=== PATIENT | female | born 1955 | race Caucasian/White ===

== ENCOUNTER 2016-07-01 12:17 | Emergency (ER) | payer OTHER ==
[2016-07-01] MEDS ORDERED: Ketorolac INJ* 30 MG/ML 1 ML VIAL IV ONE (15:07)
[2016-07-01] MEDS ORDERED: Ondansetron INJ* 2 MG/ML VIAL IV ONE (15:10)
[2016-07-01] MEDS: NS 0.9% 1000 ML* 2,000 ML IV ONE ×2 (15:15→17:08)
[2016-07-01 15:27] LABS: Hematocrit 43 % (35-47); Hemoglobin 13.8 g/dl (12.0-16.0); Mean Corpuscular HGB Conc 32 g/dl (31-36); Mean Corpuscular Hemoglobin 26 pg (27-31); Mean Corpuscular Volume 80 fL (80-97); Mean Platelet Volume 7 um3 (7.4-10.4); Red Blood Count 5.39 10^6/ul (4.0-5.4); Red Cell Distribution Width 14 % (10.5-15); White Blood Count 8.1 10^3/ul (3.5-10.8)
[2016-07-01] MEDS ORDERED: Benzonatate CAP* 100 MG PO ONE (15:29)
[2016-07-01] MEDS ORDERED: guaiFENesin/CODIEN 100MG-10MG* 5 ML UDC PO ONE (15:30)
[2016-07-01 15:31] LABS: Urine Bilirubin Negative (Negative); Urine Glucose Negative (Negative); Urine Nitrite Negative (Negative)
[2016-07-01 15:42] LABS: Albumin 4.1 g/dL (3.2-5.2); BUN/Creatinine Ratio 16.5 (8-20); Calcium 9.7 mg/dL (8.6-10.3); EGFR African American 96.1 (>60); EGFR Non-African American 74.7 (>60); Globulin 3.3 g/dL (2-4); Potassium 3.8 mmol/L (3.5-5.0); Total Bilirubin 0.4 mg/dL (0.2-1.0); Total Protein 7.4 g/dL (6.4-8.9)
--- NOTE | 2016-07-01 15:56 | RAD ---
Indication: Right-sided headaches with vomiting. CT of the brain was performed without IV contrast. Ventricular structures are midline. No midline shift is noted. The extra-axial spaces are unremarkable. There is no evidence of intracranial mass or hemorrhage. No other high or low density lesions are identified. Mastoid air cells and paranasal sinuses are otherwise unremarkable. IMPRESSION: No intracranial mass or hemorrhage is noted.
--- NOTE | 2016-07-01 17:03 | RAD ---
Indication: Vomiting. Cough, pneumonia. 2 views of the chest demonstrate no mediastinal shift. Heart is of normal size and configuration. Lungs are clear. When compared to previous exam there is no significant change. IMPRESSION: No active cardiopulmonary disease is noted.
--- NOTE | 2016-07-01 17:04 | RAD ---
Indication: Vomiting and small bowel obstruction Flat and upright views of the abdomen demonstrates no free air. No dilated loops of bowel are noted. The colon is filled with stool. IMPRESSION: No free air or obstruction is noted.
[2016-07-01] MEDS ORDERED: Ipratropium 0.5MG/2.5ML NEB* 0.5 MG/2.5 ML NEB.SOLN INH ONE (17:48)
[2016-07-01] MEDS ORDERED: Albuterol HFA INHALER* 8 gm MDI INH ONE (18:50)
--- NOTE | 2016-07-01 19:22 | ED ---
Rachel Merlos Anna, scribed for Chris Dueñas MD on 07/01/16 at 1458 . Headache - HPI Summary HPI Summary: Patient is a 60 y/o female coming to [facility] presenting with a constant headache that began last night. She reports getting frequent headaches. The headache is located behind her forehead and her right eye, described as a pressure. She has some photophobia. The headache is exacerbated by coughing. She has additionally had abdominal pain, emesis, and nausea. The abdominal pain also began last night , and she attributes it to the emesis. The abdominal pain is exacerbated by BM. She reports neck pain when coughing. She has had a cough and was prescribed cough syrup with Codeine and Azithromycin six days ago. The cough is a dry, unproductive cough and has been present for three weeks. She has rhinorrhea and watery eyes. She takes Zofran regularly for nausea. She takes a stool softener at baseline. She has been unable to take some of her medications because of the emesis. She says a she has history of migraines, undiagnosed, and a history of seasonal allergies. She denies a history of asthma. She did not have a flu shot this year. 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 - accompanied by family Hx Last Menstrual Period: today Onset/Duration: Started days ago, Still Present Timing: Constant Character: Pressure - Allergies/Home Medications Allergies/Adverse Reactions: Allergies Allergy/AdvReac Type Severity Reaction Status Date / Time Venlafaxine [From Effexor] Allergy Unknown Verified 07/01/16 12:29 Reaction Details ETOH Allergy Unknown Unknown Uncoded 07/01/16 12:29 Reaction Details PMH/Surg Hx/FS Hx/Imm Hx Endocrine/Hematology History: Denies: Hx Diabetes, Hx Thyroid Disease Cardiovascular History: Reports: Hx Hypercholesterolemia Denies: Hx Congestive Heart Failure, Hx Hypertension Respiratory History: Reports: Hx Seasonal Allergies Denies: Hx Asthma, Hx Chronic Obstructive Pulmonary Disease (COPD) GI History: Denies: Hx Ulcer History: Denies: Hx Renal Disease Neurological History: Reports: Hx Migraine, Other Neuro Impairments/Disorders - 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 Auditory hallucinations. Denies: Hx Eating Disorder Infectious Disease History: No Infectious Disease History: Denies: Hx Hepatitis, Hx Human Immunodeficiency Virus (HIV), History Other Infectious Disease, Traveled Outside the [place] in Last 30 Days - Family History Known Family History: Positive: Cardiac Disease - sister of [place] @ 47. - Social History Occupation: Disabled Alcohol Use: None Hx Substance Use: No Substance Use Type: Reports: None Hx Tobacco Use: Yes Smoking Status (MU): Former Smoker Have You Smoked in the Last Year: No Review of Systems Positive: Photophobia, Drainage - watery Positive: Nasal Discharge Positive: Cough Positive: Abdominal Pain, Vomiting, Nausea Positive: Arthralgia Positive: Headache All Other Systems Reviewed And Are Negative: Yes Physical Exam - Summary Physical Exam Summary: The patient is well-nourished in mild distress. The skin is warm and dry and skin color reflects adequate perfusion. Decreased skin turgor. HEENT: The head is normocephalic and atraumatic. The pupils are equal and reactive. The conjunctivae are clear and without drainage. Nares are patent and without drainage. Mouth reveals moist mucous membranes and the throat is without erythema and exudate. The external ears are intact. The ear canals are patent and without drainage. The tympanic membranes are intact. A little bit of photophobia Neck is supple with full range of motion and non-tender. No TMJ tenderness. To temporal artery tenderness. No nuchal rigidity. Respiratory: Chest is non-tender. Some rales in right base of chest. Cardiovascular: Heart is regular rate and rhythm. There is no murmur or rub auscultated. There is no peripheral edema and pulses are symmetrical and equal. Decreased skin turgor. Abdomen: The abdomen is soft and non-tender. There are normal bowel sounds heard in all four quadrants and there is no organomegaly palpated. Musculoskeletal: There is no back pain noted. Extremities are non-tender with full range of motion. There is good capillary refill, 2 seconds. There is no peripheral edema or calf tenderness elicited. Neurological: Patient is alert and oriented to person, place and time. The patient has symmetrical motor strength in all four extremities. Cranial nerves are grossly intact. Deep tendon reflexes are symmetrical and equal in all four extremities. Psychiatric: The patient has an appropriate affect and does not exhibit any anxiety or depression. Triage Information Reviewed: Yes Vital Signs On Initial Exam: Initial Vitals Temp Pulse Resp BP Pulse Ox 99.0 F 80 18 122/75 97 07/01/16 12:29 07/01/16 12:29 07/01/16 12:29 07/01/16 12:29 07/01/16 12:29 Vital Signs Reviewed: Yes Diagnostics - Vital Signs Vital Signs Temp Pulse Resp BP Pulse Ox 07/01/16 13:38 99.6 F 88 20 124/74 96 07/01/16 12:29 99.0 F 80 18 122/75 97 - Laboratory Lab Results: Lab Results 07/01/16 07/01/16 07/01/16 Range/Units 15:15 15:15 15:15 WBC 8.1 (3.5-10.8) 10^3/ul RBC 5.39 (4.0-5.4) 10^6/ul Hgb 13.8 (12.0-16.0) g/dl Hct 43 (35-47) % MCV 80 (80-97) fL MCH 26 L (27-31) pg MCHC 32 (31-36) g/dl RDW 14 (10.5-15) % Plt Count 346 (150-450) 10^3/ul MPV 7 L (7.4-10.4) um3 Neut % (Auto) 62.5 (38-83) % Lymph % (Auto) 31.1 (25-47) % [place] % (Auto) 5.5 (1-9) % Eos % (Auto) 0.5 (0-6) % Baso % (Auto) 0.4 (0-2) % Absolute Neuts (auto) 5.0 (1.5-7.7) 10^3/ul Absolute Lymphs (auto) 2.5 (1.0-4.8) 10^3/ul Absolute Monos (auto) 0.4 (0-0.8) 10^3/ul Absolute Eos (auto) 0 (0-0.6) 10^3/ul Absolute Basos (auto) 0 (0-0.2) 10^3/ul Absolute Nucleated RBC 0.01 10^3/ul Nucleated RBC % 0.1 Sodium 139 (133-145) mmol/L Potassium 3.8 (3.5-5.0) mmol/L Chloride 103 (101-111) mmol/L Carbon Dioxide 29 (22-32) mmol/L Anion Gap 7 (2-11) mmol/L BUN 13 (6-24) mg/dL Creatinine 0.79 (0.51-0.95) mg/dL Est GFR ( Amer) 96.1 (>60) Est GFR (Non-Af Amer) 74.7 (>60) BUN/Creatinine Ratio 16.5 (8-20) Glucose 96 (70-100) mg/dL Lactic Acid (0.5-2.0) mmol/L Calcium 9.7 (8.6-10.3) mg/dL Total Bilirubin 0.40 (0.2-1.0) mg/dL AST 11 L (13-39) U/L ALT 16 (7-52) U/L Alkaline Phosphatase 33 L (34-104) U/L Total Protein 7.4 (6.4-8.9) g/dL Albumin 4.1 (3.2-5.2) g/dL Globulin 3.3 (2-4) g/dL Albumin/Globulin Ratio 1.2 (1-3) Lipase 20 (11.0-82.0) U/L Urine Color Yellow Urine Appearance Turbid Urine pH 5.0 (5-9) Ur Specific Sharps 1.021 (1.010-1.030) Urine Protein Negative (Negative) Urine Ketones Trace H (Negative) Urine Blood Negative (Negative) Urine Nitrate Negative (Negative) Urine Bilirubin Negative (Negative) Urine Urobilinogen Negative (Negative) Ur Leukocyte Esterase Negative (Negative) Urine Glucose Negative (Negative) Urine Ascorbic Acid * H (Negative) 07/01/16 Range/Units 15:15 WBC (3.5-10.8) 10^3/ul RBC (4.0-5.4) 10^6/ul Hgb (12.0-16.0) g/dl Hct (35-47) % MCV (80-97) fL MCH (27-31) pg MCHC (31-36) g/dl RDW (10.5-15) % Plt Count (150-450) 10^3/ul MPV (7.4-10.4) um3 Neut % (Auto) (38-83) % Lymph % (Auto) (25-47) % [place] % (Auto) (1-9) % Eos % (Auto) (0-6) % Baso % (Auto) (0-2) % Absolute Neuts (auto) (1.5-7.7) 10^3/ul Absolute Lymphs (auto) (1.0-4.8) 10^3/ul Absolute Monos (auto) (0-0.8) 10^3/ul Absolute Eos (auto) (0-0.6) 10^3/ul Absolute Basos (auto) (0-0.2) 10^3/ul Absolute Nucleated RBC 10^3/ul Nucleated RBC % Sodium (133-145) mmol/L Potassium (3.5-5.0) mmol/L Chloride (101-111) mmol/L Carbon Dioxide (22-32) mmol/L Anion Gap (2-11) mmol/L BUN (6-24) mg/dL Creatinine (0.51-0.95) mg/dL Est GFR ( Amer) (>60) Est GFR (Non-Af Amer) (>60) BUN/Creatinine Ratio (8-20) Glucose (70-100) mg/dL Lactic Acid 0.8 (0.5-2.0) mmol/L Calcium (8.6-10.3) mg/dL Total Bilirubin (0.2-1.0) mg/dL AST (13-39) U/L ALT (7-52) U/L Alkaline Phosphatase (34-104) U/L Total Protein (6.4-8.9) g/dL Albumin (3.2-5.2) g/dL Globulin (2-4) g/dL Albumin/Globulin Ratio (1-3) Lipase (11.0-82.0) U/L Urine Color Urine Appearance Urine pH (5-9) Ur Specific [place] (1.010-1.030) Urine Protein (Negative) Urine Ketones (Negative) Urine Blood (Negative) Urine Nitrate (Negative) Urine Bilirubin (Negative) Urine Urobilinogen (Negative) Ur Leukocyte Esterase (Negative) Urine Glucose (Negative) Urine Ascorbic Acid (Negative) Result Diagrams: 07/01/16 15:15 07/01/16 15:15 Lab Statement: Any lab studies that have been ordered have been reviewed, and results considered in the medical decision making process. - Radiology Abd XR Xray Interpretation: No Acute Changes Radiology Interpretation Completed By: Radiologist - Flat and upright views of the abdomen demonstrates no free air. No dilated loops of bowel are noted. The colon is filled with stool. IMPRESSION: No free air or obstruction is noted. CXR Xray Interpretation: No Acute Changes Radiology Interpretation Completed By: Radiologist - CT CT Brain CT Interpretation: No Acute Changes CT Interpretation Completed By: Radiologist - IMPRESSION: No intracranial mass or hemorrhage is noted. Re-Evaluation - Re-Evaluation First Eval Re-Evaluation Time: 16:20 Change: Improved Comment: She reports that her SOTELO better. Nausea is all right. She refuses more analgesics at this time. Second Eval Re-Evaluation Time: 16:53 Change: Improved Comment: The patient reports that her SOTELO has mostly resolved. She is still coughing. Her family member says the patient does not wheeze at home. The patient has received her medication for her cough at this time. Third Eval Re-Evaluation Time: 17:30 Change: Improved Comment: The patient's SOTELO has resolved, but she reports that she is still coughing. She says she has some cough syrup at home. There is no wheezing on auscultation. Reviewed labs, XR, CT with patient. Fourth Eval Re-Evaluation Time: 18:43 Change: Improved Comment: The Atrovent breathing treatment alleviated the coughing somewhat. The coughing is now just intermittent. Headache Course/Dx - Course Assessment/Plan: Patient is a 60 y/o female with a history of cough for three weeks being treated with azithromycin and guaifensin with Codeine. 24 hours ago she developed a severe right-sided headache with photophobia and abdominal pain. She also felt nausea. Patient was given IV hydration and analgesisa in the form of Toradol. She had Zofran and Toradol for total resolution. CXR and abd Xr showed no obstruction. Labs WNL. She had an Atrovent treatment, which the patient states helped. She was also given Teslon pearls, which helped. She will be discharged home with albuterol inhaler, Teslon pearls, and follow up from her doctor. - Diagnoses Differential Diagnosis/HQI/PQRI: Subarachnoid Hemorrhage, Other - pneumonia, bronchitis, migraine, small bowel obstruction, sinusitis, reactive airways disease Provider Diagnoses: Headache, Abdominal pain, Chronic cough, Bronchitis, Dehydration Discharge - Discharge Plan Condition: Stable Disposition: HOME Prescriptions: Benzonatate CAP* [Tessalon 100 MG CAP*] 100 mg PO TID #30 cap Patient Education Materials: Albuterol (By breathing), Chronic Cough (ED), General Headache (ED) Referrals: Fortino Pelayo MD [Primary Care Provider] - Additional Instructions: For the albuterol inhaler, use two puffs every six hours. Continue with cough medicine as directed. Take Tessalon as directed. Follow up with primary care provider within 48 hours. Return to the emergency department for any new or worsening symptoms. The documentation as recorded by the Rachel martínez Anna accurately reflects the service I personally performed and the decisions made by Spenser jules Drew, MD.
[2016-07-01 19:23] VITALS: BP 115/71
== END 2016-07-01 19:21 | disposition home or self-care (01) ==
LOC: ED 12:17
DX: R51 Headache (principal); J40 Bronchitis, not specified as acute or chronic; E86.0 Dehydration; R10.9 Unspecified abdominal pain; H53.149 Visual discomfort, unspecified; R05 Cough; R11.2 Nausea with vomiting, unspecified; Z87.891 Personal history of nicotine dependence
CPT/HCPCS: 36415; 70450; 71020; 74020; 80053; 81003; 83605; 83690; 85025; 94640; 96374; 96375; 99283; A9270-GY; J1885; J2405; J7644

== ENCOUNTER 2017-01-31 10:11 | Emergency (ER) | payer OTHER ==
[2017-01-31] MEDS ORDERED: Ketorolac INJ* 30 MG/ML 1 ML VIAL IM ONE (11:08)
[2017-01-31 11:14] VITALS: BP 125/66
--- NOTE | 2017-01-31 11:49 | RAD ---
Indication: Left shoulder pain. 3 views of left shoulder demonstrates AC joint arthritis. No fracture is noted. IMPRESSION: No fracture of the left elbow is noted.
--- NOTE | 2017-02-01 08:25 | ED ---
Gen Merlos Alfonso, scribed for Ildefonso Chanel MD on 01/31/17 at 1119 . Upper Extremity Pain - HPI Summary HPI Summary: This patient is a 61 year old F BIBA to [facility] with a chief complaint of left shoulder pain since 1000 yesterday. The pain radiates to her left upper back and LUE. She denies recent trauma. She reports recent heavy lifting. The patient rates the pain 5/10 in severity. Symptoms alleviated by nothing. Patient denies right shoulder pain and abdominal pain. - History of Current Complaint Chief Complaint: EDExtremityUpper Stated Complaint: LT SHOULDER PAIN Time Seen by Provider: 01/31/17 10:48 Hx Obtained From: Patient Hx Last Menstrual Period: today Mechanism Of Injury: Other - recent heavy lifting Onset/Duration: Started Days Ago - 1000 yesterday, Still Present Timing: Constant Pain Location: Shoulder - L Alleviating Factor(s): Nothing Associated Signs & Symptoms: Positive: Other - Patient denies right shoulder pain and abdominal pain. - Allergies/Home Medications Allergies/Adverse Reactions: Allergies Allergy/AdvReac Type Severity Reaction Status Date / Time Venlafaxine [From Effexor] Allergy Unknown Verified 07/01/16 12:29 Reaction Details ETOH Allergy Unknown Unknown Uncoded 07/01/16 12:29 Reaction Details PMH/Surg Hx/FS Hx/Imm Hx Endocrine/Hematology History: Denies: Hx Diabetes, Hx Thyroid Disease Cardiovascular History: Reports: Hx Hypercholesterolemia Denies: Hx Congestive Heart Failure, Hx Hypertension Respiratory History: Reports: Hx Seasonal Allergies Denies: Hx Asthma, Hx Chronic Obstructive Pulmonary Disease (COPD) GI History: Denies: Hx Ulcer History: Denies: Hx Renal Disease Neurological History: Reports: Hx Migraine, Other Neuro Impairments/Disorders - 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 Auditory hallucinations. Denies: Hx Eating Disorder Infectious Disease History: No Infectious Disease History: Denies: Hx Hepatitis, Hx Human Immunodeficiency Virus (HIV), History Other Infectious Disease, Traveled Outside the [place] in Last 30 Days - Family History Known Family History: Positive: Cardiac Disease - sister of [place] @ 47. - Social History Alcohol Use: None Hx Substance Use: No Substance Use Type: Reports: None Hx Tobacco Use: Yes Smoking Status (MU): Former Smoker Have You Smoked in the Last Year: No Review of Systems Negative: Fever Negative: Abdominal Pain Positive: Other - Left shoulder pain; negative right shoulder pain All Other Systems Reviewed And Are Negative: Yes Physical Exam - Summary Physical Exam Summary: VITAL SIGNS: Reviewed. GENERAL: Patient is a well-developed and nourished female who is lying comfortable in the stretcher. Patient is not in any acute respiratory distress. HEAD AND FACE: No signs of trauma. No ecchymosis, hematomas or skull depressions. No sinus tenderness. EYES: PERRLA, EOMI x 2, No injected conjunctiva, no nystagmus. EARS: Hearing grossly intact. Ear canals and tympanic membranes are within normal limits. MOUTH: Oropharynx within normal limits. NECK: Supple, trachea is midline, no adenopathy, no JVD, no carotid bruit, no c- spine tenderness, neck with full ROM. CHEST: Symmetric, no tenderness at palpation LUNGS: Clear to auscultation bilaterally. No wheezing or crackles. CVS: Regular rate and rhythm, S1 and S2 present, no murmurs or gallops appreciated. ABDOMEN: Soft, non-tender. No signs of distention. No rebound no guarding, and no masses palpated. Bowel sounds are normal. EXTREMITIES: FROM in all major joints, no edema, no cyanosis or clubbing. No deformity, erythema, hematoma, and swelling. Left trapezius and left sternocleidomastoid tenderness. NEURO: Alert and oriented x 3. No acute neurological deficits. Speech is normal and follows commands. SKIN: Dry and warm Triage Information Reviewed: Yes Vital Signs On Initial Exam: Initial Vitals Temp Pulse Resp BP Pulse Ox 98.4 F 76 19 125/66 96 01/31/17 11:09 01/31/17 11:09 01/31/17 11:09 01/31/17 11:09 01/31/17 11:09 Vital Signs Reviewed: Yes - Greene Coma Scale Coma Scale Total: 15 Diagnostics - Vital Signs Vital Signs Temp Pulse Resp BP Pulse Ox 01/31/17 11:16 74 96 01/31/17 11:09 98.4 F 76 19 125/66 96 - Laboratory Lab Statement: Any lab studies that have been ordered have been reviewed, and results considered in the medical decision making process. - Radiology Left shoulder X-Ray Radiology Interpretation Completed By: Radiologist - No fracture of the left elbow is noted. ED physician has reviewed this radiology report and agrees. Course/Dx - Course Assessment/Plan: This patient is a 61 year old F BIBA to [facility] with a chief complaint of left shoulder pain since 1000 yesterday. The pain radiates to her left upper back and LUE. She denies recent trauma. She reports recent heavy lifting. The patient rates the pain 5/10 in severity. Symptoms alleviated by nothing. Patient denies right shoulder pain and abdominal pain. Left shoulder X- Ray reveals No fracture of the left elbow is noted. ED physician has reviewed this radiology report and agrees. The patients pain is along the Left trapezius and left sternocleidomastoid. Therefore the patient was given a toradol injection and her symptoms improved. I believe the symptoms are secondary to a muscle spasm due to over use. Since the patient is feeling better she will be discharged to home with PCP follow up. The patient is agreeable with this plan. The patient is hemodynamically stable and alert and oriented x3. - Diagnoses Differential Diagnosis/HQI/PQRI: Positive: Bursitis, Contusion, Fracture (Closed ), Strain, Sprain Provider Diagnoses: Left shoulder pain Discharge - Discharge Plan Condition: Stable Disposition: HOME Prescriptions: Naproxen TAB* [Naprosyn 250 mg TAB*] 500 mg PO Q8H PRN #30 tab PRN Reason: Pain Patient Education Materials: Shoulder Pain (ED) Referrals: Fortino Pelayo MD [Primary Care Provider] - 3 Days Additional Instructions: RETURN TO THE EMERGENCY DEPARTMENT FOR CHANGING OR WORSENING SYMPTOMS. The documentation as recorded by the Gen martínez Alfonso accurately reflects the service I personally performed and the decisions made by , Ildefonso Chanel MD.
== END 2017-01-31 13:01 | disposition home or self-care (01) ==
LOC: ED 10:11
DX: M25.512 Pain in left shoulder (principal)
CPT/HCPCS: 96372; 99282; J1885

== ENCOUNTER 2017-07-20 14:26 | Emergency (ER) | payer OTHER ==
[2017-07-20] MEDS ORDERED: Meclizine TAB* 12.5 MG PO ONE (15:01)
[2017-07-20 15:42] LABS: Urine Appearance Clear; Urine Blood Negative (Negative); Urine Color Yellow; Urine Ketones Negative (Negative); Urine Protein Negative (Negative); Urine Red Blood Cell Trace(0-2/hpf) (Absent); Urine Specific Gravity 1.025 (1.010-1.030); Urine Urobilinogen Negative (Negative); Urine White Blood Cell Trace(0-5/hpf) (Absent)
[2017-07-20 16:09] LABS: ABS Basophils 0.1 10^3/ul (0-0.2); ABS Eosinophils 0.1 10^3/ul (0-0.6); ABS Lymphocytes 2.5 10^3/ul (1.0-4.8); ABS Monocytes 0.6 10^3/ul (0-0.8); ABS Neutrophils 4.3 10^3/ul (1.5-7.7); ABS Nucleated RBC 0 10^3/ul; Eosinophil % 1.2 % (0-6); Hematocrit 44 % (35-47); Hemoglobin 14.6 g/dl (12.0-16.0); Lymphocyte % 33.1 % (25-47); Mean Corpuscular HGB Conc 33 g/dl (31-36); Mean Corpuscular Hemoglobin 27 pg (27-31); Mean Corpuscular Volume 82 fL (80-97); Mean Platelet Volume 6.8 um3 (7.4-10.4); Nucleated Red Blood Cells % 0; Platelet Count 318 10^3/ul (150-450); Red Cell Distribution Width 15 % (10.5-15); White Blood Count 7.6 10^3/ul (3.5-10.8)
[2017-07-20 16:28] LABS: EGFR Non-African American 67.5 (>60)
--- NOTE | 2017-07-20 18:54 | ED ---
Shukri Merlos Natalie, scribed for Blas Logan MD on 07/20/17 at 1538 . Psychiatric Complaint - HPI Summary HPI Summary: The pt is a 61 y/o F presenting to the ED c/o anxiety, pacing, sleep loss, and dizziness started approximately four weeks ago. Per mother, the pt cannot retain information and she is unable to relax. She visited a mental health counselor three weeks ago when the anxiety started, but she was able to be evaluated because her case was closed the time due to the positive reaction that her Abilify prescription has providing for her. A few days ago she went to a counselor who modified her Abilify dosage to 10mg because it was not working, and she was also put on a low dosage sleeping medication. She has had two episodes of dizziness in the past few days, and she states that pacing, which started on 07/18/17, helps her retain her balance. She has also been hearing voices. - History Of Current Complaint Chief Complaint: EDMentalHealth Time Seen by Provider: 07/20/17 14:35 Hx Obtained From: Patient, Family/Enrobing Machine Operator - mother Hx Last Menstrual Period: today Onset/Duration: Gradual Onset, Lasting Weeks, Still Present Timing: Constant Severity Initially: Moderate Severity Currently: Moderate Character: Anxious Aggravating Factor(s): Nothing Alleviating Factor(s): Nothing Associated Signs And Symptoms: Positive: Hallucinating - voices, Sleep Disturbance - Allergies/Home Medications Allergies/Adverse Reactions: Allergies Allergy/AdvReac Type Severity Reaction Status Date / Time venlafaxine [From Effexor] Allergy Dizziness Verified 07/20/17 14:42 ETOH Allergy Unknown GI Upset Uncoded 07/20/17 14:42 Home Medications: Home Medications Acetaminophen TAB* [Tylenol TAB*] 325 mg PO Q4H PRN 07/20/17 [History Confirmed 07/20/17] Ondansetron TAB* [Zofran 4 MG Tab*] 4 mg PO Q6H PRN 07/20/17 [History Confirmed 07/20/17] traZODone TAB* [Desyrel TAB*] 50 mg PO BEDTIME 07/20/17 [History Confirmed 07/20] PMH/Surg Hx/FS Hx/Imm Hx Previously Healthy: No Endocrine/Hematology History: Denies: Hx Diabetes, Hx Thyroid Disease Cardiovascular History: Reports: Hx Hypercholesterolemia Denies: Hx Congestive Heart Failure, Hx Hypertension Respiratory History: Reports: Hx Seasonal Allergies Denies: Hx Asthma, Hx Chronic Obstructive Pulmonary Disease (COPD) GI History: Denies: Hx Ulcer History: Denies: Hx Renal Disease Neurological History: Reports: Hx Migraine, Other Neuro Impairments/Disorders - 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 Auditory hallucinations. Denies: Hx Eating Disorder Infectious Disease History: No Infectious Disease History: Denies: Hx Hepatitis, Hx Human Immunodeficiency Virus (HIV), History Other Infectious Disease, Traveled Outside the [place] in Last 30 Days - Family History Known Family History: Positive: Cardiac Disease - sister of [place] @ 47. - Social History Alcohol Use: None Hx Substance Use: No Substance Use Type: Reports: None, Prescribed Hx Tobacco Use: Yes Smoking Status (MU): Former Smoker Have You Smoked in the Last Year: No Review of Systems Neurological: Other - dizziness, pacing, unable to relax, hearing voices Positive: Anxious All Other Systems Reviewed And Are Negative: Yes Physical Exam Triage Information Reviewed: Yes Vital Signs On Initial Exam: Initial Vitals Temp Pulse Resp BP Pulse Ox 99.1 F 93 18 109/65 100 07/20/17 14:36 07/20/17 14:36 07/20/17 14:36 07/20/17 14:36 07/20/17 14:36 Vital Signs Reviewed: Yes Appearance: Positive: Well-Appearing, No Pain Distress Skin: Positive: Warm, Skin Color Reflects Adequate Perfusion, Dry Head/Face: Positive: Normal Head/Face Inspection Eyes: Positive: EOMI, TG ENT: Positive: Normal ENT inspection Neck: Positive: Supple, Nontender Respiratory/Lung Sounds: Positive: Clear to Auscultation, Breath Sounds Present Cardiovascular: Positive: RRR Abdomen Description: Positive: Nontender, Soft Bowel Sounds: Positive: Present Musculoskeletal: Positive: Normal, Strength/ROM Intact Neurological: Positive: Normal, Sensory/Motor Intact, Alert, Oriented to Person Place, Time, Other - standing without moving causes the pt to start to lose her balance Diagnostics - Vital Signs Vital Signs Temp Pulse Resp BP Pulse Ox 07/20/17 14:36 99.1 F 93 18 109/65 100 - Laboratory Lab Results: Lab Results 07/20/17 07/20/17 07/20/17 Range/Units 15:15 15:15 15:57 WBC (3.5-10.8) 10^3/ul RBC (4.0-5.4) 10^6/ul Hgb (12.0-16.0) g/dl Hct (35-47) % MCV (80-97) fL MCH (27-31) pg MCHC (31-36) g/dl RDW (10.5-15) % Plt Count (150-450) 10^3/ul MPV (7.4-10.4) um3 Neut % (Auto) (38-83) % Lymph % (Auto) (25-47) % [place] % (Auto) (0-7) % Eos % (Auto) (0-6) % Baso % (Auto) (0-2) % Absolute Neuts (auto) (1.5-7.7) 10^3/ul Absolute Lymphs (auto) (1.0-4.8) 10^3/ul Absolute Monos (auto) (0-0.8) 10^3/ul Absolute Eos (auto) (0-0.6) 10^3/ul Absolute Basos (auto) (0-0.2) 10^3/ul Absolute Nucleated RBC 10^3/ul Nucleated RBC % Sodium 139 (139-145) mmol/L Potassium 3.8 (3.5-5.0) mmol/L Chloride 105 (101-111) mmol/L Carbon Dioxide 24 (22-32) mmol/L Anion Gap 10 (2-11) mmol/L BUN 26 H (6-24) mg/dL Creatinine 0.86 (0.51-0.95) mg/dL Est GFR ( Amer) 86.9 (>60) Est GFR (Non-Af Amer) 67.5 (>60) BUN/Creatinine Ratio 30.2 H (8-20) Glucose 97 (70-100) mg/dL Calcium 9.5 (8.6-10.3) mg/dL Total Bilirubin 0.30 (0.2-1.0) mg/dL AST 14 (13-39) U/L ALT 16 (7-52) U/L Alkaline Phosphatase 31 L (34-104) U/L Total Protein 7.1 (6.4-8.9) g/dL Albumin 4.1 (3.2-5.2) g/dL Globulin 3.0 (2-4) g/dL Albumin/Globulin Ratio 1.4 (1-3) TSH 1.54 (0.34-5.60) mcIU/mL Urine Color Yellow Urine Appearance Clear Urine pH 5.0 (5-9) Ur Specific [place] 1.025 (1.010-1.030) Urine Protein Negative (Negative) Urine Ketones Negative (Negative) Urine Blood Negative (Negative) Urine Nitrate Negative (Negative) Urine Bilirubin Negative (Negative) Urine Urobilinogen Negative (Negative) Ur Leukocyte Esterase Trace A (Negative) Urine WBC (Auto) Trace(0-5/hpf) (Absent) Urine RBC (Auto) Trace(0-2/hpf) (Absent) Ur Squamous Epith Cells Present A (Absent) Urine Bacteria Absent (Absent) Urine Glucose Negative (Negative) Salicylates < 2.50 (<30) mg/dL Urine Opiates Screen None detected (None Detect) Acetaminophen < 15 mcg/mL Ur Barbiturates Screen None detected (None Detect) Ur Phencyclidine Scrn None detected (None Detect) Ur Amphetamines Screen None detected (None Detect) U Benzodiazepines Scrn None detected (None Detect) Urine Cocaine Screen None detected (None Detect) U Cannabinoids Screen None detected (None Detect) Serum Alcohol < 10 (<10) mg/dL 07/20/17 Range/Units 15:57 WBC 7.6 (3.5-10.8) 10^3/ul RBC 5.40 (4.0-5.4) 10^6/ul Hgb 14.6 (12.0-16.0) g/dl Hct 44 (35-47) % MCV 82 (80-97) fL MCH 27 (27-31) pg MCHC 33 (31-36) g/dl RDW 15 (10.5-15) % Plt Count 318 (150-450) 10^3/ul MPV 6.8 L (7.4-10.4) um3 Neut % (Auto) 56.8 (38-83) % Lymph % (Auto) 33.1 (25-47) % [place] % (Auto) 8.1 H (0-7) % Eos % (Auto) 1.2 (0-6) % Baso % (Auto) 0.8 (0-2) % Absolute Neuts (auto) 4.3 (1.5-7.7) 10^3/ul Absolute Lymphs (auto) 2.5 (1.0-4.8) 10^3/ul Absolute Monos (auto) 0.6 (0-0.8) 10^3/ul Absolute Eos (auto) 0.1 (0-0.6) 10^3/ul Absolute Basos (auto) 0.1 (0-0.2) 10^3/ul Absolute Nucleated RBC 0 10^3/ul Nucleated RBC % 0 Sodium (139-145) mmol/L Potassium (3.5-5.0) mmol/L Chloride (101-111) mmol/L Carbon Dioxide (22-32) mmol/L Anion Gap (2-11) mmol/L BUN (6-24) mg/dL Creatinine (0.51-0.95) mg/dL Est GFR ( Amer) (>60) Est GFR (Non-Af Amer) (>60) BUN/Creatinine Ratio (8-20) Glucose (70-100) mg/dL Calcium (8.6-10.3) mg/dL Total Bilirubin (0.2-1.0) mg/dL AST (13-39) U/L ALT (7-52) U/L Alkaline Phosphatase (34-104) U/L Total Protein (6.4-8.9) g/dL Albumin (3.2-5.2) g/dL Globulin (2-4) g/dL Albumin/Globulin Ratio (1-3) TSH (0.34-5.60) mcIU/mL Urine Color Urine Appearance Urine pH (5-9) Ur Specific [place] (1.010-1.030) Urine Protein (Negative) Urine Ketones (Negative) Urine Blood (Negative) Urine Nitrate (Negative) Urine Bilirubin (Negative) Urine Urobilinogen (Negative) Ur Leukocyte Esterase (Negative) Urine WBC (Auto) (Absent) Urine RBC (Auto) (Absent) Ur Squamous Epith Cells (Absent) Urine Bacteria (Absent) Urine Glucose (Negative) Salicylates (<30) mg/dL Urine Opiates Screen (None Detect) Acetaminophen mcg/mL Ur Barbiturates Screen (None Detect) Ur Phencyclidine Scrn (None Detect) Ur Amphetamines Screen (None Detect) U Benzodiazepines Scrn (None Detect) Urine Cocaine Screen (None Detect) U Cannabinoids Screen (None Detect) Serum Alcohol (<10) mg/dL Result Diagrams: 07/20/17 15:57 07/20/17 15:57 Lab Statement: Any lab studies that have been ordered have been reviewed, and results considered in the medical decision making process. Course/Dx - Course Course Of Treatment: Medications reviewed. Allergies noted. MHE PENDING AT SHIFT CHANGE. - Differential Dx/Clinical Impression Provider Diagnosis: Mental health problem, Dizziness Discharge - Sign-Out/Discharge Documenting (check all that apply): Discharge, Sign-Out Patient Signing out patient TO: Juan Sousa - Discharge Plan Condition: Stable Disposition: [facility] [place] Referrals: Fortino Pelayo MD [Primary Care Provider] - - Billing Disposition and Condition Condition: STABLE Disposition: [facility] [place] The documentation as recorded by the Shukri martínez Natalie accurately reflects the service I personally performed and the decisions made by me, Blas Logan MD.
[2017-07-20] MEDS ORDERED: QUEtiapine TAB* 25 MG PO ONE (20:00)
[2017-07-20 20:08] VITALS: BP 92/50
--- NOTE | 2017-08-11 19:18 | ED ---
Progress - Progress Note Progress Note: assumed care from Dr Hogan. Pt received crisis evaluation and was cleared for discharge. - Consult/PCP Time Called: 17:10 Course/Dx - Course Course Of Treatment: Medications reviewed. Allergies noted. MHE PENDING AT SHIFT CHANGE. - Diagnoses Provider Diagnoses: Mental health problem, Dizziness Discharge - Sign-Out/Discharge Documenting (check all that apply): Discharge - Discharge Plan Condition: Stable Disposition: HOME Prescriptions: QUEtiapine TAB* [SEROquel TAB*] 50 mg PO DAILY #14 tab Patient Education Materials: Hallucinations (ED), Anxiolysis in Adults (ED) Referrals: Fortino Pelayo MD [Primary Care Provider] - - Billing Disposition and Condition Condition: STABLE Disposition: HOME
== END 2017-07-20 20:15 | disposition home or self-care (01) ==
LOC: ED 14:26
DX: R44.0 Auditory hallucinations (principal); R42 Dizziness and giddiness; Z72.820 Sleep deprivation; Z87.891 Personal history of nicotine dependence
CPT/HCPCS: 36415; 80053; 80307; 80320; 80329; 81003; 81015; 84443; 85025; 87086; 99283; A9270-GY; G0480

== ENCOUNTER 2017-08-17 13:53 | Emergency (ER) | payer OTHER ==
[2017-08-17 14:10] VITALS: BP 118/99
== END 2017-08-17 15:58 | disposition left against medical advice (07) ==
LOC: ED 13:53
DX: M54.9 Dorsalgia, unspecified (principal); Z53.21 Procedure and treatment not carried out due to patient leaving prior to being seen by health care provider

== ENCOUNTER 2017-08-26 12:32 | Emergency (ER) | payer OTHER ==
[2017-08-26] MEDS ORDERED: Meclizine TAB* 12.5 MG PO ONE (15:00)
[2017-08-26] MEDS ORDERED: NS 0.9% 1000 ML* 1,000 ML IV ONE (15:00)
--- NOTE | 2017-08-26 15:33 | RAD ---
Indication: Dizziness, back pain, unstable on feet. Shortness of breath. Progression over a few weeks. Comparison: July 01, 2016 CT. Technique: Noncontrast CT vertex of skull through foramen magnum. Report: The sulci, ventricles, and basal cisterns are normal for age. Payton matter white matter differentiation is preserved without evidence for edema. No intra or extra axial hemorrhage, mass, or fluid collection detected. Unremarkable visualized orbital contents. Unremarkable calvarium and skull base. Unremarkable scalp. The visualized paranasal sinuses and mastoid air spaces are clear. IMPRESSION: Negative unenhanced head CT.
[2017-08-26 15:34] LABS: ABS Basophils 0 10^3/ul (0-0.2); ABS Eosinophils 0 10^3/ul (0-0.6); ABS Lymphocytes 2.2 10^3/ul (1.0-4.8); ABS Monocytes 0.5 10^3/ul (0-0.8); ABS Neutrophils 4.7 10^3/ul (1.5-7.7); ABS Nucleated RBC 0 10^3/ul; Eosinophil % 0.6 % (0-6); Hematocrit 45 % (35-47); Hemoglobin 14.9 g/dl (12.0-16.0); Lymphocyte % 29.4 % (25-47); Mean Corpuscular HGB Conc 33 g/dl (31-36); Mean Corpuscular Hemoglobin 28 pg (27-31); Mean Corpuscular Volume 83 fL (80-97); Mean Platelet Volume 7.1 um3 (7.4-10.4); Nucleated Red Blood Cells % 0.1; Platelet Count 274 10^3/ul (150-450); Red Blood Count 5.36 10^6/ul (4.0-5.4); Red Cell Distribution Width 14 % (10.5-15); White Blood Count 7.6 10^3/ul (3.5-10.8)
--- NOTE | 2017-08-26 15:55 | RAD ---
INDICATION: Dizziness COMPARISON: Chest x-ray dated July 01, 2016 TECHNIQUE: Single AP portable view of the chest was obtained. FINDINGS: Image quality is compromised due to the relative inferiority of a portable chest x-ray. The heart and mediastinum exhibit normal size and contour. The lungs are grossly clear. There is no evidence of a large pleural effusion. Visualized bones are normal for the patient's age. IMPRESSION: No radiographic evidence for acute cardiopulmonary abnormality on this portable chest x-ray.
[2017-08-26 16:07] LABS: EGFR Non-African American 64.1 (>60)
--- NOTE | 2017-08-26 17:07 | ED ---
Dizziness - HPI Summary HPI Summary: Pt. is a 61 y.o female who presents to the ER for dizziness x one month. Pt. has a history of cognitive dysfunction and follows with the [facility]. A lead case manager from [facility] is present with her today. Pt. describes dizziness as feeling off balance. She notes it usually occurs when she goes from sitting to standing. 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 She also notes she has been pacing a lot. She does have a mental health history. PtGuicho nicole denies current CP, SOB, Abd. pain, N/V/D, urinary sxs, numbness, tingling or weakness. Symptoms are moderate in severity. No current modifying factors. - History Of Current Complaint Chief Complaint: EDDizziness Stated Complaint: DIFF BREATHING,DIZZINESS Time Seen by Provider: 08/26/17 14:37 Hx Obtained From: Patient, Family/Software Release Manager - Allergies/Home Medications Allergies/Adverse Reactions: Allergies Allergy/AdvReac Type Severity Reaction Status Date / Time venlafaxine [From Effexor] Allergy Dizziness Verified 08/26/17 12:57 ETOH Allergy Unknown GI Upset Uncoded 08/26/17 12:57 Home Medications: Home Medications Ondansetron TAB* [Zofran 4 MG Tab*] 4 mg PO Q6H PRN 08/26/17 [History Confirmed 08/26/17] PMH/Surg Hx/FS Hx/Imm Hx Previously Healthy: Yes Endocrine/Hematology History: Denies: Hx Diabetes, Hx Thyroid Disease Cardiovascular History: Reports: Hx Hypercholesterolemia Denies: Hx Congestive Heart Failure, Hx Hypertension Respiratory History: Reports: Hx Seasonal Allergies Denies: Hx Asthma, Hx Chronic Obstructive Pulmonary Disease (COPD) GI History: Denies: Hx Ulcer History: Denies: Hx Renal Disease Neurological History: Reports: Hx Migraine, Other Neuro Impairments/Disorders - 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 Auditory hallucinations. Denies: Hx Eating Disorder, Hx of Violent Episodes Against Others Infectious Disease History: No Infectious Disease History: Denies: Hx Hepatitis, Hx Human Immunodeficiency Virus (HIV), History Other Infectious Disease, Traveled Outside the [place] in Last 30 Days - Family History Known Family History: Positive: Cardiac Disease - sister of [place] @ 47. - Social History Alcohol Use: None Hx Substance Use: No Substance Use Type: Reports: None Hx Tobacco Use: Yes Smoking Status (MU): Former Smoker Have You Smoked in the Last Year: No Review of Systems Constitutional: Negative Negative: Fever, Chills Eyes: Negative ENT: Negative Cardiovascular: Negative Negative: Palpitations, Chest Pain Respiratory: Negative Negative: Shortness Of Breath, Cough Gastrointestinal: Negative Negative: Abdominal Pain, Vomiting, Diarrhea, Nausea Genitourinary: Negative Musculoskeletal: Negative Skin: Negative Negative: Headache, Weakness, Paresthesia, Numbness, Syncope All Other Systems Reviewed And Are Negative: Yes Physical Exam Triage Information Reviewed: Yes Vital Signs On Initial Exam: Initial Vitals Temp Pulse Resp BP Pulse Ox 99.9 F 93 18 125/59 94 08/26/17 12:54 08/26/17 12:54 08/26/17 12:54 08/26/17 12:54 08/26/17 12:54 Vital Signs Reviewed: Yes Appearance: Positive: Well-Appearing - Pt. sitting up in bed in NAD. daytime caregiver present. Skin: Positive: Warm, Dry Head/Face: Positive: Normal Head/Face Inspection Eyes: Positive: Normal, TG Neck: Positive: Supple Respiratory/Lung Sounds: Positive: Clear to Auscultation, Breath Sounds Present Cardiovascular: Positive: Normal, RRR Abdomen Description: Positive: Nontender, Soft Musculoskeletal: Positive: Normal, Strength/ROM Intact Neurological: Positive: Normal, CN Intact II-III, Normal Gait, Finger to Nose - Normal. Negative: Receptive Aphasia, Expressive Aphasia, Cerebellar Dysfunction , Disoriented, Facial Droop, Slurred Speech, Dysphagia, Ataxic Gait, Pronator Drift Present Psychiatric: Positive: Normal Diagnostics - Vital Signs Vital Signs Temp Pulse Resp BP Pulse Ox 08/26/17 12:54 99.9 F 93 18 125/59 94 - Laboratory Lab Results: Lab Results 08/26/17 08/26/17 Range/Units 15:28 15:28 WBC 7.6 (3.5-10.8) 10^3/ul RBC 5.36 (4.0-5.4) 10^6/ul Hgb 14.9 (12.0-16.0) g/dl Hct 45 (35-47) % MCV 83 (80-97) fL MCH 28 (27-31) pg MCHC 33 (31-36) g/dl RDW 14 (10.5-15) % Plt Count 274 (150-450) 10^3/ul MPV 7.1 L (7.4-10.4) um3 Neut % (Auto) 62.6 (38-83) % Lymph % (Auto) 29.4 (25-47) % [place] % (Auto) 6.9 (0-7) % Eos % (Auto) 0.6 (0-6) % Baso % (Auto) 0.5 (0-2) % Absolute Neuts (auto) 4.7 (1.5-7.7) 10^3/ul Absolute Lymphs (auto) 2.2 (1.0-4.8) 10^3/ul Absolute Monos (auto) 0.5 (0-0.8) 10^3/ul Absolute Eos (auto) 0 (0-0.6) 10^3/ul Absolute Basos (auto) 0 (0-0.2) 10^3/ul Absolute Nucleated RBC 0 10^3/ul Nucleated RBC % 0.1 Sodium 140 (139-145) mmol/L Potassium 3.6 (3.5-5.0) mmol/L Chloride 105 (101-111) mmol/L Carbon Dioxide 25 (22-32) mmol/L Anion Gap 10 (2-11) mmol/L BUN 19 (6-24) mg/dL Creatinine 0.90 (0.51-0.95) mg/dL Est GFR ( Amer) 82.4 (>60) Est GFR (Non-Af Amer) 64.1 (>60) BUN/Creatinine Ratio 21.1 H (8-20) Glucose 92 (70-100) mg/dL Calcium 9.5 (8.6-10.3) mg/dL Magnesium 2.2 (1.9-2.7) mg/dL Total Bilirubin 0.40 (0.2-1.0) mg/dL AST 11 L (13-39) U/L ALT 13 (7-52) U/L Alkaline Phosphatase 31 L (34-104) U/L Troponin I 0.00 (<0.04) ng/mL Total Protein 7.3 (6.4-8.9) g/dL Albumin 4.3 (3.2-5.2) g/dL Globulin 3.0 (2-4) g/dL Albumin/Globulin Ratio 1.4 (1-3) Result Diagrams: 08/26/17 15:28 08/26/17 15:28 Lab Statement: Any lab studies that have been ordered have been reviewed, and results considered in the medical decision making process. Dizzy Course/Dx - Course Course Of Treatment: Patient presenting to the ER for a month history of dizziness. She is afebrile with stable vital signs. Neurological exam today is unremarkable. We'll obtain labs, EKG, chest x-ray and head CT. She was given a dose of meclizine and started on IV fluids. Labs are unremarkable. Brain CT and chest x-ray are negative for acute findings, reading per radiology. EKG done at 1418 shows a sinus rhythm of 75 bpm, normal axis, appropriate intervals, no ST elevation or depression. On reexamination patient states she is feeling better after fluids and medication. She was able to relate to the bathroom without difficulty or ataxia. Urinalysis is negative for infection. Results were discussed with patient and caregiver. We'll discharge home today. Prescription for meclizine sent. Advised to call PCP tomorrow for an appointment for further evaluation. To return to the ER symptoms change or worsen. - Diagnoses Differential Diagnosis/HQI/PQRI: Anxiety, Benign Paroxysmal Positional Vertigo, CVA Provider Diagnoses: Vertigo Discharge - Sign-Out/Discharge Documenting (check all that apply): Discharge/Admit/Transfer - Discharge Plan Condition: Good Disposition: HOME Prescriptions: Meclizine TAB* [Antivert 12.5 TAB*] 25 mg PO TID PRN #12 tab PRN Reason: Dizziness Patient Education Materials: Vertigo (ED) Referrals: Fortino Pelayo MD [Primary Care Provider] - Additional Instructions: Schedule a follow-up appointment with your PCP tomorrow Meclizine as directed for dizziness Returned to the ER symptoms change or worsen - Billing Disposition and Condition Condition: GOOD Disposition: HOME
[2017-08-26 17:37] LABS: Urine Appearance Clear; Urine Blood Negative (Negative); Urine Color Yellow; Urine Ketones 1+ (Negative); Urine Protein Negative (Negative); Urine Specific Gravity 1.025 (1.010-1.030); Urine Urobilinogen Negative (Negative)
[2017-08-26 18:22] VITALS: BP 121/74
== END 2017-08-26 18:21 | disposition home or self-care (01) ==
LOC: ED 12:32
DX: R42 Dizziness and giddiness (principal); Z87.891 Personal history of nicotine dependence; E78.00 Pure hypercholesterolemia, unspecified
CPT/HCPCS: 36415; 70450; 71045; 80053; 81003; 83735; 84484; 85025; 93005; 96360; 99283; A9270-GY

== ENCOUNTER 2018-01-18 12:48 | Emergency (ER) | payer OTHER ==
[2018-01-18] MEDS ORDERED: Ondansetron INJ* 2 MG/ML VIAL IV ONE (13:31)
[2018-01-18] MEDS ORDERED: NS 0.9% 1000 ML* 1,000 ML IV ONE (13:31)
[2018-01-18] MEDS ORDERED: Albuterol/Ipratropium NEB.SOL* Albuterol 2.5 MG/Ipratropium 0.5 MG 3 ML INH ONE (13:32)
--- NOTE | 2018-01-18 13:43 | ED ---
Complex/Multi-Sys Presentation - HPI Summary HPI Summary: Patient presents with persistent cough and headache 3 weeks. The cough is somewhat productive with mucous - no antwon discoloration. She believes the headache is a result of the cough because the headache feels better at rest and worse with cough only - has neck muscle soreness with coughing (NOTE: h/o "migraines" but this doesn't feel the same). She denies photophobia, change in vision, neck stiffness, fever, chills, sinus pain or pressure, ear pain. She does have some throat irritation from coughing and vomiting. She admits she vomits when she gets coughing which causes her to gag. She is frustrated as she is having difficulty keeping food down because of the coughing followed by gagging followed by vomiting. She has home Zofran that she takes but she's puking through this. Denies abdominal pain, chest pain, back pain, SOB, wheezing, hemoptysis. She has been feeling wiped out in general from coughing so much, lack of eating, and having difficulty sleeping due to the cough. She does not have any antwon joint pain or muscle aches. She has had this same culmination of symptoms occur in the past and was seen in the ED. She had relief with a breathing treatment and IV fluids. She would like to try this regimen here again today although agrees if she does not feel better she will go to the emergency department. She admits to "allergies" in the summer time which have been well controlled this year. Her cough started at the end of November and when she saw her PCP on , she was rx'd cough syrup with codeine. This did not help cough. She went back to PCP on 01/06/2018 and was rx'd tessalon perles and cetirizne. This did not help either. SHe was seen again yesterday and given a zpak and flonase. She feels the same and is tired of coughing and vomiting so came here today. - History Of Current Complaint Chief Complaint: UCGeneralIllness Time Seen by Provider: 01/18/18 13:06 Hx Obtained From: Patient, Family/Slat Pickler - mental health nurse practitioner - Allergies/Home Medications Allergies/Adverse Reactions: Allergies Allergy/AdvReac Type Severity Reaction Status Date / Time venlafaxine [From Effexor] Allergy Dizziness Verified 01/18/18 12:52 ETOH Allergy Unknown GI Upset Uncoded 01/18/18 12:52 Home Medications: Home Medications Azithromycin TAB* [Zithromax TAB (Z-ROBERT) 250 mg #6 tabs] 250 mg PO DAILY [History Confirmed 01/18/18] Benzonatate CAP* [Tessalon 100 MG CAP*] 10 mg PO Q6H PRN 01/18/18 [History Confirmed 01/18/18] Cetirizine* [ZyrTEC 10 MG TAB*] 10 mg PO DAILY 01/18/18 [History Confirmed 01/18] Codeine Phosphate/Guaifenesin [Cheratussin AC Syrup] 10 ml PO Q4H PRN 01/18/18 [ History Confirmed 01/18/18] Fluticasone NASAL SPRAY 50MCG* [Flonase NASAL SPRAY 50MCG*] 2 spr BOTH NARES DAILY 01/18/18 [History Confirmed 01/18/18] PMH/Surg Hx/FS Hx/Imm Hx Previously Healthy: Yes - prior to cough 3 weeks ago, felt good Endocrine/Hematology History: Denies: Hx Diabetes, Hx Thyroid Disease Cardiovascular History: Reports: Hx Hypercholesterolemia Denies: Hx Aneurysm, Hx Atrial Fibrillation, Hx Congenital Heart Disease, Hx Congestive Heart Failure, Hx Hypertension, Hx Myocardial Infarction, Hx Valvular Heart Disease Respiratory History: Reports: Hx Seasonal Allergies, Other Respiratory Problems/ Disorders - has required neb tx's for cough in past Denies: Hx Asthma, Hx Chronic Obstructive Pulmonary Disease (COPD) GI History: Reports: Other GI Disorders - vomiting episodes Denies: Hx Gastroesophageal Reflux Disease, Hx Ulcer History: Denies: Hx Renal Disease Musculoskeletal History: Reports: Hx Back Problems - cervical kyphosis - in PT Neurological History: Reports: Hx Migraine - has excederin but doesn't like to take, Other Neuro Impairments/Disorders - 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 Auditory hallucinations. Denies: Hx Eating Disorder, Hx of Violent Episodes Against Others Infectious Disease History: No Infectious Disease History: Denies: Hx Hepatitis, Hx Human Immunodeficiency Virus (HIV), History Other Infectious Disease, Traveled Outside the [place] in Last 30 Days - Family History Known Family History: Positive: Cardiac Disease - sister of [place] @ 47. - Social History Alcohol Use: None Hx Substance Use: No Substance Use Type: Reports: None Hx Tobacco Use: Yes Smoking Status (MU): Former Smoker Have You Smoked in the Last Year: No Review of Systems Positive: Fatigue. Negative: Fever, Chills Eyes: Negative Negative: Photophobia, Blurred Vision, Diplopia, Drainage, Erythema Positive: Sore Throat, Nasal Discharge. Negative: Ear Ache Cardiovascular: Negative Negative: Palpitations, Chest Pain Positive: Cough. Negative: Shortness Of Breath Positive: Vomiting. Negative: Abdominal Pain, Diarrhea, Nausea Positive: no symptoms reported Musculoskeletal: Negative Skin: Negative Positive: Headache. Negative: Weakness, Paresthesia, Numbness, Syncope, Slurred Speech Psychological: Normal All Other Systems Reviewed And Are Negative: Yes Physical Exam Triage Information Reviewed: Yes Vital Signs On Initial Exam: Initial Vitals Temp Pulse Resp BP Pulse Ox 98.6 F 109 24 153/112 96 01/18/18 12:52 01/18/18 12:52 01/18/18 12:52 01/18/18 12:52 01/18/18 12:52 Vital Signs Reviewed: Yes Appearance: Positive: Well-Nourished, Ill-Appearing - appears fatigued but is able to transition from sitting to standing and climbing onto/off of table - can ambulate w/o difficulty or SOB. Skin: Positive: Warm, Skin Color Reflects Adequate Perfusion, Dry Head/Face: Positive: Normal Head/Face Inspection Eyes: Positive: Normal, EOMI, Conjunctiva Clear. Negative: Conjunctiva Inflammed, Discharge ENT: Positive: Hearing grossly normal, Pharyngeal erythema - mild, cobblestoning , Nasal congestion - boggy turbinates, TMs normal, Uvula midline. Negative: Tonsillar swelling, Tonsillar exudate, Trismus, Muffled voice, Hoarse voice, Sinus tenderness Dental: Negative: Abscess @ Neck: Positive: Nontender, No Lymphadenopathy. Negative: Nuchal Rigidity Respiratory/Lung Sounds: Positive: Clear to Auscultation, Breath Sounds Present - but pt does not take a deep breath and coughs when she tries, Wheezes - faint , distant wheezing. Negative: Rales, Rhonchi, Stridor, Unable to speak in full sentences, Fatigue Cardiovascular: Positive: Tachycardia, S1, S2. Negative: Murmur, Rub, Leg Edema Left, Leg Edema Right Abdomen Description: Positive: Nontender, No Organomegaly, Soft Bowel Sounds: Positive: Present Musculoskeletal: Positive: Normal, Strength/ROM Intact Neurological: Positive: Normal, Sensory/Motor Intact, Alert, Oriented to Person Place, Time, CN Intact II-III, Reflexes Intact, Facial Symmetry, Speech Normal. Negative: Ataxic Gait, Pronator Drift Present Psychiatric: Positive: Normal - low mood, tired Diagnostics - Vital Signs Vital Signs Temp Pulse Resp BP Pulse Ox 01/18/18 12:52 98.6 F 109 24 153/112 96 - Laboratory Lab Statement: Any lab studies that have been ordered have been reviewed, and results considered in the medical decision making process. Complex Multi-Symp Course/Dx Course Of Treatment: Pt presents w/ chronic cough x 3 weeks causing her to gag and vomit - difficulty holding food/liquids down as a result. Also has a SOTELO and just feels wiped out in general. Has been to see PCP 3 x and every time they rx new med(s), she reports they do not help. She is not worse today, but simply cannot get her sx under control and tired of coughing and vomiting. She has had this combo of issues in the past as read in her ED from 08/2017. She improved w/ atrovent neb and IV fluids - offered this regimen again today but if she is not better, agrees to go to ED for further evaluation. Re-eval s/p neb reveals cough is less but SOTELO is worse when she does cough. Pulse ox 93-96. Repeat chest auscultation reveals crackles in LLL. CXR results reveals LLL infiltrate. Will send to ED via ambulance as she already has IV line in place and w/ worse SOTELO, still coughing/no improvement in pulse ox, needs further w/u. SPoke w/ Lillie Caba PA-C. - Diagnoses Provider Diagnoses: Left lower lobe pneumonia, Headache Discharge - Sign-Out/Discharge Documenting (check all that apply): Patient Departure All imaging exams completed and their final reports reviewed: Yes - Discharge Plan Condition: Stable Disposition: TRANS HIGHER LVL OF CARE FAC - Billing Disposition and Condition Condition: STABLE Disposition: Trans Higher Lvl of Care Fac
[2018-01-18 14:41] VITALS: BP 118/72
--- NOTE | 2018-01-18 14:55 | RAD ---
HISTORY: Cough COMPARISONS: August 26, 2017 VIEWS: 4: Frontal dual-energy and lateral views of the chest. FINDINGS: CARDIOMEDIASTINAL SILHOUETTE: The cardiomediastinal silhouette is normal. LORI: The lori are normal. PLEURA: The costophrenic angles are sharp. No pleural abnormalities are noted. LUNG PARENCHYMA: There is minimal patchy alveolar opacification of the left lung base. ABDOMEN: The upper abdomen is clear. There is no subphrenic gas. BONES AND SOFT TISSUES: No bone or soft tissue abnormalities are noted. OTHER: None. IMPRESSION: MINIMAL PATCHY AIRSPACE DISEASE OF THE LEFT LUNG BASE
== END 2018-01-18 15:19 | disposition short-term general hospital (02) ==
LOC: UCEAST 12:48
DX: J18.9 Pneumonia, unspecified organism (principal); R51 Headache; Z87.891 Personal history of nicotine dependence
CPT/HCPCS: 71046; 96360; 96374; 99213; A9270-GY; G0463; J2405

== ENCOUNTER 2018-01-18 15:32 | Observation (INO) | payer OTHER ==
[2018-01-18] MEDS ORDERED: NS 0.9% 1000 ML* 1,000 ML IV ONE (15:42)
[2018-01-18] MEDS ORDERED: guaiFENesin/CODIEN 100MG-10MG* 5 ML UDC PO ONE (16:02)
[2018-01-18] MEDS ORDERED: Azithromycin IV(*) 500 MG in NS 0.9% 250 ML* 250 ML IVPB ONE (16:03)
[2018-01-18] MEDS ORDERED: cefTRIAXone(*) 1 GM in NS 0.9% 50 ML* 50 ML IVPB ONE (16:03)
[2018-01-18 16:30] LABS: ABS Basophils 0 10^3/ul (0-0.2); ABS Eosinophils 0 10^3/ul (0-0.6); ABS Lymphocytes 1.4 10^3/ul (1.0-4.8); ABS Monocytes 0.7 10^3/ul (0-0.8); ABS Neutrophils 2.9 10^3/ul (1.5-7.7); ABS Nucleated RBC 0 10^3/ul; Eosinophil % 0.9 % (0-6); Hematocrit 40 % (35-47); Hemoglobin 13.5 g/dl (12.0-16.0); Mean Corpuscular HGB Conc 34 g/dl (31-36); Mean Corpuscular Hemoglobin 28 pg (27-31); Mean Corpuscular Volume 83 fL (80-97); Nucleated Red Blood Cells % 0.1; Platelet Count 247 10^3/ul (150-450); Red Blood Count 4.85 10^6/ul (4.00-5.40); Red Cell Distribution Width 14 % (10.5-15)
[2018-01-18 16:47] LABS: EGFR Non-African American 82.6 (>60)
--- NOTE | 2018-01-18 16:48 | UC ---
Respiratory Complaint HPI - HPI Summary HPI Summary: Patient is a 8-year-old female with a chief complaint of cough times approximately 3 weeks to 1 month. She endorses production with cough which she describes as "mucous." She is endorsing some vomiting with coughing due to irritation and reports a gagging feeling. She has been taking Zofran at home without relief of symptoms. She has been seen 3 times by her PCP. She was given a course of antibiotics (Z-Jonathon) however she has been unable to keep this down. She denies any shortness of breath, chest pain, back pain or hemoptysis. She states she has been feeling very fatigued, but denies any fevers, sweats, chills. She denies any muscle aches. She endorses some throat pain, but states this is likely secondary from the coughing. Denies any sinus pressure or pain. She has been feeling excess fatigue over the past month which she feels has been worsening. She was given Tessalon Perles, sertraline, cough syrup, Flonase as well as a Z-Jonathon over the past 3 visits she states all which have not helped her symptoms. She lives alone, however has caretakers come in for 2-3 hours every other day to help with ADLs. Symptoms are worse with exertion, better with rest. Patient was seen in the urgent care this morning and sent here for further evaluation of a left lower lobe pneumonia, persistent cough not improved with at home medications and the inability to keep medications, food and fluids down properly. Vital signs were stable at the . - History of Current Complaint Chief Complaint: EDShortnessOfBreath Stated Complaint: GEN ILLNESS-SENT F/CC Time Seen by Provider: 01/18/18 15:38 Hx Obtained From: Patient Hx Last Menstrual Period: today ?: No Onset/Duration: Sudden Onset Timing: Constant Severity Initially: Moderate Severity Currently: Moderate Pain Intensity: 0 Pain Scale Used: 0-10 Numeric Character: Cough: Productive - Allergies/Home Medications Allergies/Adverse Reactions: Allergies Allergy/AdvReac Type Severity Reaction Status Date / Time venlafaxine [From Effexor] Allergy Dizziness Verified 01/18/18 15:37 ETOH Allergy Unknown GI Upset Uncoded 01/18/18 15:37 PMH/Surg Hx/FS Hx/Imm Hx - Surgical History Surgical History: None - Family History Known Family History: Positive: Cardiac Disease - sister of [place] @ 47. - Social History Alcohol Use: None Substance Use Type: None Smoking Status (MU): Former Smoker Have You Smoked in the Last Year: No Physical Exam Vital Signs: Initial Vital Signs Temp 99.9 F 01/18/18 15:34 Pulse 109 01/18/18 15:34 Resp 24 01/18/18 15:34 BP 122/89 01/18/18 15:34 Pulse Ox 95 01/18/18 15:34 Diagnostic Evaluation - Laboratory Result Diagrams: 01/18/18 16:12 O2 Sat by Pulse Oximetry: 96 Respiratory Course/Dx - Course Course Of Treatment: Patient is noted to have mild patchy infiltrate to the left lower lung base. On arrival, she is coughing severely and having gagging spells with small amount of emesis. Vital signs are stable. She is given 1 L of fluids, ceftriaxone and azithromycin to cover community-acquired pneumonia without ICU admission. Labs obtained which are WNL. Patient is slightly diaphoretic with erythematous bilateral cheeks. Lungs with slight crackling to the left lung base, right lung base clear to auscultation. Denies any chest pain, no palpitations noted and RRR. Discharge - Discharge Plan Referrals: Fortino Pelayo MD [Primary Care Provider] -
--- NOTE | 2018-01-18 16:51 | ED ---
Respiratory - HPI Summary HPI Summary: Patient is a 8-year-old female with a chief complaint of cough times approximately 3 weeks to 1 month. She endorses production with cough which she describes as "mucous." She is endorsing some vomiting with coughing due to irritation and reports a gagging feeling. She has been taking Zofran at home without relief of symptoms. She has been seen 3 times by her PCP. She was given a course of antibiotics (Z-Jonathon) however she has been unable to keep this down. She denies any shortness of breath, chest pain, back pain or hemoptysis. She states she has been feeling very fatigued, but denies any fevers, sweats, chills. She denies any muscle aches. She endorses some throat pain, but states this is likely secondary from the coughing. Denies any sinus pressure or pain. She has been feeling excess fatigue over the past month which she feels has been worsening. She was given Tessalon Perles, sertraline, cough syrup, Flonase as well as a Z-Jonathon over the past 3 visits she states all which have not helped her symptoms. She lives alone, however has caretakers come in for 2-3 hours every other day to help with ADLs. Symptoms are worse with exertion, better with rest. Patient was seen in the urgent care this morning and sent here for further evaluation of a left lower lobe pneumonia, persistent cough not improved with at home medications and the inability to keep medications, food and fluids down properly. Vital signs were stable at the . - History of Current Complaint Chief Complaint: EDShortnessOfBreath Stated Complaint: GEN ILLNESS-SENT F/CC Time Seen by Provider: 01/18/18 15:38 Hx Obtained From: Patient Onset/Duration: Sudden Onset Timing: Constant Initial Severity: Moderate Current Severity: Moderate Pain Intensity: 0 Character: Wheezing, Cough (Productive) Sputum Amount: Small Sputum Color: Yellow Aggravating Factor(s): URI, Allergens, Weather Change, Deep Breaths, Recumbent Position Alleviating Factor(s): Nothing Associated Signs and Symptoms: SOB, Wheezing, Chest Pain with Cough, Dyspnea, Sinus Discomfort - Risk Factors Status Asthmaticus Risk Factors: Negative Pulmonary Embolism Risk Factors: Negative Cardiac Risk Factors: Negative Pseudomonas Risk Factors: Negative Tuberculosis Risk Factors: Negative - Allergy/Home Medications Allergies/Adverse Reactions: Allergies Allergy/AdvReac Type Severity Reaction Status Date / Time venlafaxine [From Effexor] Allergy Dizziness Verified 01/18/18 15:37 ETOH Allergy Unknown GI Upset Uncoded 01/18/18 15:37 PMH/Surg Hx/FS Hx/Imm Hx Previously Healthy: Yes Endocrine/Hematology History: Denies: Hx Diabetes, Hx Thyroid Disease Cardiovascular History: Reports: Hx Hypercholesterolemia Denies: Hx Aneurysm, Hx Atrial Fibrillation, Hx Congenital Heart Disease, Hx Congestive Heart Failure, Hx Hypertension, Hx Myocardial Infarction, Hx Valvular Heart Disease Respiratory History: Reports: Hx Seasonal Allergies, Other Respiratory Problems/ Disorders - has required neb tx's for cough in past Denies: Hx Asthma, Hx Chronic Obstructive Pulmonary Disease (COPD) GI History: Reports: Other GI Disorders - vomiting episodes Denies: Hx Gastroesophageal Reflux Disease, Hx Ulcer History: Denies: Hx Renal Disease Musculoskeletal History: Reports: Hx Back Problems - cervical kyphosis - in PT Neurological History: Reports: Hx Migraine - has excederin but doesn't like to take, Other Neuro Impairments/Disorders - 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 Auditory hallucinations. Denies: Hx Eating Disorder, Hx of Violent Episodes Against Others - Immunization History Hx Pertussis Vaccination: No Immunizations Up to Date: Yes Infectious Disease History: No Infectious Disease History: Denies: Hx Hepatitis, Hx Human Immunodeficiency Virus (HIV), History Other Infectious Disease, Traveled Outside the [place] in Last 30 Days - Family History Known Family History: Positive: Cardiac Disease - sister of [place] @ 47. - Social History Occupation: Unemployed Lives: Alone Alcohol Use: None Hx Substance Use: No Substance Use Type: Reports: None Hx Tobacco Use: Yes Smoking Status (MU): Former Smoker Have You Smoked in the Last Year: No Review of Systems Constitutional: Negative Negative: Fever, Chills, Fatigue, Skin Diaphoresis Positive: Sore Throat, Nasal Discharge Negative: Palpitations, Chest Pain Positive: Shortness Of Breath, Cough Positive: Vomiting. Negative: Diarrhea, Nausea Positive: no symptoms reported, see HPI Negative: Rash, Bruising Negative: Headache, Weakness, Paresthesia, Numbness, Syncope Psychological: Normal All Other Systems Reviewed And Are Negative: Yes Physical Exam Triage Information Reviewed: Yes Vital Signs On Initial Exam: Initial Vitals Temp Pulse Resp BP Pulse Ox 99.9 F 109 24 122/89 95 01/18/18 15:34 01/18/18 15:34 01/18/18 15:34 01/18/18 15:34 01/18/18 15:34 Vital Signs Reviewed: Yes Appearance: Positive: Well-Appearing, Well-Nourished Skin: Positive: Warm, Skin Color Reflects Adequate Perfusion Head/Face: Positive: Normal Head/Face Inspection Eyes: Positive: EOMI, TG, Conjunctiva Clear Neck: Positive: Supple, Nontender, No Lymphadenopathy Respiratory/Lung Sounds: Positive: Wheezes - LL base, Fatigue Cardiovascular: Positive: RRR, Pulses are Symmetrical in both Upper and Lower Extremities Musculoskeletal: Positive: Normal, Strength/ROM Intact Neurological: Positive: Normal, Sensory/Motor Intact, Alert, Oriented to Person Place, Time, Speech Normal Psychiatric: Positive: Normal, Affect/Mood Appropriate AVPU Assessment: Alert Diagnostics - Vital Signs Vital Signs Temp Pulse Resp BP Pulse Ox 01/18/18 16:48 96 01/18/18 16:06 104 140/88 96 01/18/18 16:00 105 97 01/18/18 15:36 114 122/89 93 01/18/18 15:34 99.9 F 109 24 122/89 95 - Laboratory Lab Results: Lab Results 01/18/18 01/18/18 01/18/18 Range/Units 16:12 16:12 16:12 WBC 5.0 (3.5-10.8) 10^3/ul RBC 4.85 (4.00-5.40) 10^6/ul Hgb 13.5 (12.0-16.0) g/dl Hct 40 (35-47) % MCV 83 (80-97) fL MCH 28 (27-31) pg MCHC 34 (31-36) g/dl RDW 14 (10.5-15) % Plt Count 247 (150-450) 10^3/ul MPV 7.0 L (7.4-10.4) um3 Neut % (Auto) 58.1 (38-83) % Lymph % (Auto) 27.0 (25-47) % [place] % (Auto) 13.5 H (0-7) % Eos % (Auto) 0.9 (0-6) % Baso % (Auto) 0.5 (0-2) % Absolute Neuts (auto) 2.9 (1.5-7.7) 10^3/ul Absolute Lymphs (auto) 1.4 (1.0-4.8) 10^3/ul Absolute Monos (auto) 0.7 (0-0.8) 10^3/ul Absolute Eos (auto) 0 (0-0.6) 10^3/ul Absolute Basos (auto) 0 (0-0.2) 10^3/ul Absolute Nucleated RBC 0 10^3/ul Nucleated RBC % 0.1 INR (Anticoag Therapy) 1.00 (0.77-1.02) APTT Pending Sodium 141 (135-145) mmol/L Potassium 3.6 (3.5-5.0) mmol/L Chloride 111 (101-111) mmol/L Carbon Dioxide 24 (22-32) mmol/L Anion Gap 6 (2-11) mmol/L BUN 14 (6-24) mg/dL Creatinine 0.72 (0.51-0.95) mg/dL Est GFR ( Amer) 100.0 (>60) Est GFR (Non-Af Amer) 82.6 (>60) BUN/Creatinine Ratio 19.4 (8-20) Glucose 93 (70-100) mg/dL Lactic Acid (0.5-2.0) mmol/L Calcium 8.6 (8.6-10.3) mg/dL Total Bilirubin 0.50 (0.2-1.0) mg/dL AST 11 L (13-39) U/L ALT 13 (7-52) U/L Alkaline Phosphatase 33 L (34-104) U/L Total Protein 6.3 L (6.4-8.9) g/dL Albumin 3.8 (3.2-5.2) g/dL Globulin 2.5 (2-4) g/dL Albumin/Globulin Ratio 1.5 (1-3) 01/18/18 Range/Units 16:12 WBC (3.5-10.8) 10^3/ul RBC (4.00-5.40) 10^6/ul Hgb (12.0-16.0) g/dl Hct (35-47) % MCV (80-97) fL MCH (27-31) pg MCHC (31-36) g/dl RDW (10.5-15) % Plt Count (150-450) 10^3/ul MPV (7.4-10.4) um3 Neut % (Auto) (38-83) % Lymph % (Auto) (25-47) % [place] % (Auto) (0-7) % Eos % (Auto) (0-6) % Baso % (Auto) (0-2) % Absolute Neuts (auto) (1.5-7.7) 10^3/ul Absolute Lymphs (auto) (1.0-4.8) 10^3/ul Absolute Monos (auto) (0-0.8) 10^3/ul Absolute Eos (auto) (0-0.6) 10^3/ul Absolute Basos (auto) (0-0.2) 10^3/ul Absolute Nucleated RBC 10^3/ul Nucleated RBC % INR (Anticoag Therapy) (0.77-1.02) APTT Sodium (135-145) mmol/L Potassium (3.5-5.0) mmol/L Chloride (101-111) mmol/L Carbon Dioxide (22-32) mmol/L Anion Gap (2-11) mmol/L BUN (6-24) mg/dL Creatinine (0.51-0.95) mg/dL Est GFR ( Amer) (>60) Est GFR (Non-Af Amer) (>60) BUN/Creatinine Ratio (8-20) Glucose (70-100) mg/dL Lactic Acid 1.2 (0.5-2.0) mmol/L Calcium (8.6-10.3) mg/dL Total Bilirubin (0.2-1.0) mg/dL AST (13-39) U/L ALT (7-52) U/L Alkaline Phosphatase (34-104) U/L Total Protein (6.4-8.9) g/dL Albumin (3.2-5.2) g/dL Globulin (2-4) g/dL Albumin/Globulin Ratio (1-3) Result Diagrams: 01/18/18 16:12 01/18/18 16:12 Lab Statement: Any lab studies that have been ordered have been reviewed, and results considered in the medical decision making process. Disposition - Course Course Of Treatment: Patient is noted to have mild patchy infiltrate to the left lower lung base. On arrival, she is coughing severely and having gagging spells with small amount of emesis. Vital signs are stable. She is given 1 L of fluids, ceftriaxone and azithromycin to cover community-acquired pneumonia without ICU admission. Labs obtained which are WNL. Patient is slightly diaphoretic with erythematous bilateral cheeks. Lungs with slight crackling to the left lung base, right lung base clear to auscultation. Denies any chest pain, no palpitations noted and RRR. Discussed case with hospitalist who agrees to come see patient. - Differential Dx - Cardiopulmonary Differential Diagnoses - Cardiopulmonary: Bronchitis, Chest Wall Pain, Pleurisy , Other - pneumonia - Diagnoses Provider Diagnoses: Pneumonia - Physician Notifications Discussed Care Of Patient With: Travis Berumen Discharge - Sign-Out/Discharge Documenting (check all that apply): Patient Departure - Discharge Plan Condition: Stable Disposition: ADMITTED TO [facility] Referrals: Fortino Pelayo MD [Primary Care Provider] - - Billing Disposition and Condition Condition: STABLE Disposition: Admitted to [facility]
[2018-01-18] MEDS ORDERED: Acetaminophen TAB* 325 MG PO PRN (17:35)
[2018-01-18] MEDS ORDERED: Ondansetron ODT TAB* 4 MG SL ONE (17:35)
[2018-01-18] MEDS ORDERED: Ondansetron INJ* 2 MG/ML VIAL IV PRN (17:35)
[2018-01-18] MEDS ORDERED: Ondansetron INJ* 2 MG/ML VIAL ONE (17:36)
[2018-01-18] MEDS ORDERED: guaiFENesin/CODIEN 100MG-10MG* 5 ML UDC PO PRN (17:41)
[2018-01-18] MEDS ORDERED: NS 0.9% 1000 ML* 1,000 ML IV SCH (17:45)
[2018-01-18] MEDS ORDERED: Enoxaparin(*) 40 MG/0.4 ML SYR SUBCUT SCH (18:00)
--- NOTE | 2018-01-18 20:36 | HP ---
AMENDED REPORT NOW INCLUDES COSIGNER DESIGNATION - ESIGNED BEFORE ADJUSTMENT CC: Dr. Pelayo * HISTORY AND PHYSICAL: DATE OF ADMISSION: 01/18/18 PROVIDER: Juan Herbert NP PRIMARY CARE PROVIDER: Dr. Pelayo. ATTENDING PHYSICIAN WHILE IN THE HOSPITAL: Dr. Jai Berumen * (dictated by Juan Herbert NP). CHIEF COMPLAINT: 1. Cough. 2. Nausea and vomiting. HISTORY OF PRESENT ILLNESS: Ms. Lin is a 62-year-old female with a past medical history significant for allergies, who presented to the emergency room today with vomiting and cough. The patient reports that she was seen by her primary care provider 2 days ago, on , and was started on Z-Jonathon for her cough and congestion, which she reports she has had over the past month, and has been tried on allergy medication and cough medicine with no relief. She does report that over the past 3 days, her cough has progressively gotten worse , so she followed up with her primary care provider, who then on placed her on a Z- Jonathon. She went and picked up the prescription on Saturday, and attempted to take the medication on Saturday, but she was nauseated and vomited after eating her lunch. She then went home and tried to take her medication and again vomited and was unable to keep the medication down. Today, on the day of admission, the patient reports that she has been vomiting all morning. She does report some diarrhea. She states that she gets coughing to the point that it causes her to vomit, but also has dry heaving intermittently in between her coughing. She does report that she has felt fevers, denies any chills. She does report cough, congestion and shortness of breath. She does report some pain in her chest with coughing and deep breath. She does report some nausea. She also reports vomiting, diarrhea and abdominal pain. Abdominal pain with coughing. She denies any hematuria or dysuria, denies any focal weakness or sensory loss, denies any visual complaints, denies any dysphagia, denies any arthralgias or myalgias, denies any rashes or lesions, denies any depression or anxiety. The patient was seen and evaluated in the emergency room. She had routine lab work drawn, which was unremarkable. Her chest x-ray showed patchy airspace disease on the left lower lobe. Due to the concern for pneumonia, nausea, and vomiting, and unable to tolerate p.o. antibiotic, we were asked to see and evaluate the patient for admission. PAST MEDICAL HISTORY: Significant for seasonal allergies and occasional nausea. PAST SURGICAL HISTORY: None. MEDICATIONS: Home medications: 1. Zofran 4 mg ODT p.r.n. 2. Claritin 1 tab p.o. daily. ALLERGIES: No known drug allergies. FAMILY HISTORY: Father with a history of an CA at age 56. No reported history of diabetes or cancer within the family. SOCIAL HISTORY: The patient does not smoke. No alcohol or illicit drug use. She lives alone. Surrogate decision maker in the event she is unable to make her own decisions is her mother. She is a full code. REVIEW OF SYSTEMS: There has been no documented fever. There has been no significant weight change. Denies any rhinorrhea or sore throat. She does report chest pain with coughing. She denies any orthopnea or nocturnal dyspnea. She does report some shortness of breath during her coughing episodes. She does report some abdominal pain and nausea, vomiting. She reports abdominal pain with coughing. She denies any dysuria, hematuria, or urinary frequency. Denies any seizures, loss of consciousness. Denies any pruritus or skin ulcerations. A review of 14 systems was completed, all others are negative. PHYSICAL EXAMINATION GENERAL: At this time, Ms. Lin is a 62-year-old female. She appears fatigued, resting on the stretcher in the emergency room. VITAL SIGNS: Blood pressure 129/60, heart rate is 106, O2 saturation on room air is 96% to 97%, temperature is 99.7. HEENT: Head is atraumatic, normocephalic. Eyes: EOMs are intact. Sclerae are anicteric, not pale. Oral mucosa appears to be dry. NECK: Supple. LUNGS: Diminished bilaterally. There are no wheezes, rales, or rhonchi. CARDIAC: S1, S2. Regular rate and rhythm. No murmurs, rubs, or gallops. ABDOMEN: Soft and nontender. Bowel sounds are present x4. EXTREMITIES: Pulses are +2 throughout. She is able to move all 4 extremities with 5/5 strength. NEUROLOGIC: She is awake, alert, and oriented x3. Speech is clear. Tongue is midline. No gross focal deficits are noted. SKIN: Intact. DIAGNOSTIC STUDIES/LAB DATA: WBC is 5.0, RBC is 4.85, hemoglobin is 13.5, hematocrit was 40, platelet count was 247. INR was 1.00, aPTT was 27.4. Sodium 141, potassium 3.6, chloride 111, carbon dioxide was 24, anion gap was 6 , BUN was 14, creatinine 0.72, lactic acid was 1.2. Chest x-ray from Urgent Care showed left patchy airspace disease in the left lower lobe. ASSESSMENT AND PLAN: Ms. Lin is a 62-year-old female, who presented to the emergency room today from the Urgent Care with complaints of cough, nausea, and vomiting. We were asked to see and evaluate her due to the cough and x-ray showing left lower lobe patchy airspace disease. She will be admitted under observation for: 1. Pneumonia. She received 500 mg IV in the emergency room. She will be placed on azithromycin 250 mg IV and ceftriaxone IV. I will give her guaifenesin cough syrup as needed for her cough. I will add a procalcitonin to her lab work and a sputum culture. I suspect she will be able to be converted to PO antibiotic tomorrow. 2. Nausea and vomiting. I suspect her nausea and vomiting is related to excessive coughing and possible underlying pneumonia. I will give her IV hydration with normal saline at 75 cc per hour and monitor her overnight. 3. DVT prophylaxis. She will get Lovenox subcu q.24 hours. 4. Fluids, electrolytes, and nutrition. She will be placed on clear liquids and can advance her diet as tolerated. 5. Code status. She is a full code. TIME SPENT: Time spent on this admission was 60 minutes, greater than half of that time was spent [id number] with the patient and her mother obtaining her history and physical, the other half of the time was spent going over the plan of care with the patient and implementing my plan of care. I have discussed this with my attending, Dr. Jai Berumen; he is in agreement with my plan. JUAN HERBERT, FREIGHT DISPATCHER [id number]/[facility] #: [id number] [facility]
[2018-01-18] MEDS: guaiFENesin LIQ* 100 MG/5 ML UDC PO PRN (21:21)
[2018-01-19] MEDS: guaiFENesin LIQ* 100 MG/5 ML UDC PO PRN (08:26)
[2018-01-19] MEDS ORDERED: Amoxicillin/Clavulanate SUSP* 600 MG/5 ML ORAL.SUSP 75 ML (600/42.9) PO ONE ×2 (16:00)
[2018-01-19] MEDS ORDERED: cefTRIAXone(*) 1 GM in NS 0.9% 50 ML* 50 ML IVPB SCH ×4 (16:30)
[2018-01-19] MEDS ORDERED: Azithromycin IV(*) 250 MG in NS 0.9% 250 ML* 250 ML IVPB SCH (17:00)
[2018-01-19 17:21] VITALS: BP 130/60
--- NOTE | 2018-01-19 19:43 | PN ---
Subjective Date of Service: 01/19/18 Interval History: patient reports no further vomiting or nausea at this time. states that she has been able to tolerate clear liquids without vomiting . Patient denies chest pain or shortness of breath. Does report cough. Denies abd pain n/v/d. Family History: Unchanged from Admission Social History: Unchanged from Admission Past Medical History: Unchanged from Admission Objective Vital Signs - 8 hr 01/19/18 01/19/18 12:15 15:59 Temperature 98.5 F 98.7 F Pulse Rate 81 87 Respiratory 16 16 Rate Blood Pressure 120/57 130/60 (mmHg) O2 Sat by Pulse 97 96 Oximetry Oxygen Devices in Use Now: None Appearance: appears comfortable resting in bed Eyes: No Scleral Icterus Ears/Nose/Mouth/Throat: Clear Oropharnyx, Mucous Membranes Moist Neck: NL Appearance and Movements; NL JVP, Trachea Midline Respiratory: Symmetrical Chest Expansion and Respiratory Effort, Clear to Auscultation Cardiovascular: NL Sounds; No Murmurs; No JVD, No Edema Abdominal: NL Sounds; No Tenderness; No Distention Extremities: No Edema, No Clubbing, Cyanosis Skin: No Rash or Ulcers, No Nodules or Sclerosis Neurological: Alert and Oriented x 3 Nutrition: Taking PO's Result Diagrams: 01/18/18 16:12 01/18/18 16:12 Additional Lab and Data: Lab Results 01/18/18 01/18/18 01/18/18 Range/Units 16:12 16:12 16:12 WBC 5.0 (3.5-10.8) 10^3/ul RBC 4.85 (4.00-5.40) 10^6/ul Hgb 13.5 (12.0-16.0) g/dl Hct 40 (35-47) % MCV 83 (80-97) fL MCH 28 (27-31) pg MCHC 34 (31-36) g/dl RDW 14 (10.5-15) % Plt Count 247 (150-450) 10^3/ul MPV 7.0 L (7.4-10.4) um3 Neut % (Auto) 58.1 (38-83) % Lymph % (Auto) 27.0 (25-47) % [place] % (Auto) 13.5 H (0-7) % Eos % (Auto) 0.9 (0-6) % Baso % (Auto) 0.5 (0-2) % Absolute Neuts (auto) 2.9 (1.5-7.7) 10^3/ul Absolute Lymphs (auto) 1.4 (1.0-4.8) 10^3/ul Absolute Monos (auto) 0.7 (0-0.8) 10^3/ul Absolute Eos (auto) 0 (0-0.6) 10^3/ul Absolute Basos (auto) 0 (0-0.2) 10^3/ul Absolute Nucleated RBC 0 10^3/ul Nucleated RBC % 0.1 INR (Anticoag Therapy) 1.00 (0.77-1.02) APTT Pending Sodium 141 (135-145) mmol/L Potassium 3.6 (3.5-5.0) mmol/L Chloride 111 (101-111) mmol/L Carbon Dioxide 24 (22-32) mmol/L Anion Gap 6 (2-11) mmol/L BUN 14 (6-24) mg/dL Creatinine 0.72 (0.51-0.95) mg/dL Est GFR ( Amer) 100.0 (>60) Est GFR (Non-Af Amer) 82.6 (>60) BUN/Creatinine Ratio 19.4 (8-20) Glucose 93 (70-100) mg/dL Lactic Acid (0.5-2.0) mmol/L Calcium 8.6 (8.6-10.3) mg/dL Total Bilirubin 0.50 (0.2-1.0) mg/dL AST 11 L (13-39) U/L ALT 13 (7-52) U/L Alkaline Phosphatase 33 L (34-104) U/L Total Protein 6.3 L (6.4-8.9) g/dL Albumin 3.8 (3.2-5.2) g/dL Globulin 2.5 (2-4) g/dL Albumin/Globulin Ratio 1.5 (1-3) 01/18/18 Range/Units 16:12 WBC (3.5-10.8) 10^3/ul RBC (4.00-5.40) 10^6/ul Hgb (12.0-16.0) g/dl Hct (35-47) % MCV (80-97) fL MCH (27-31) pg MCHC (31-36) g/dl RDW (10.5-15) % Plt Count (150-450) 10^3/ul MPV (7.4-10.4) um3 Neut % (Auto) (38-83) % Lymph % (Auto) (25-47) % [place] % (Auto) (0-7) % Eos % (Auto) (0-6) % Baso % (Auto) (0-2) % Absolute Neuts (auto) (1.5-7.7) 10^3/ul Absolute Lymphs (auto) (1.0-4.8) 10^3/ul Absolute Monos (auto) (0-0.8) 10^3/ul Absolute Eos (auto) (0-0.6) 10^3/ul Absolute Basos (auto) (0-0.2) 10^3/ul Absolute Nucleated RBC 10^3/ul Nucleated RBC % INR (Anticoag Therapy) (0.77-1.02) APTT Sodium (135-145) mmol/L Potassium (3.5-5.0) mmol/L Chloride (101-111) mmol/L Carbon Dioxide (22-32) mmol/L Anion Gap (2-11) mmol/L BUN (6-24) mg/dL Creatinine (0.51-0.95) mg/dL Est GFR ( Amer) (>60) Est GFR (Non-Af Amer) (>60) BUN/Creatinine Ratio (8-20) Glucose (70-100) mg/dL Lactic Acid 1.2 (0.5-2.0) mmol/L Calcium (8.6-10.3) mg/dL Total Bilirubin (0.2-1.0) mg/dL AST (13-39) U/L ALT (7-52) U/L Alkaline Phosphatase (34-104) U/L Total Protein (6.4-8.9) g/dL Albumin (3.2-5.2) g/dL Globulin (2-4) g/dL Albumin/Globulin Ratio (1-3) Microbiology and Other Data: Microbiology 01/18/18 16:12 Aerobic Blood Culture - Preliminary Blood Line No Growth Day 1 Anaerobic Blood Culture - Preliminary No Growth Day 1 01/18/18 16:18 Aerobic Blood Culture - Preliminary Blood Line No Growth Day 1 Anaerobic Blood Culture - Preliminary No Growth Day 1 Assess/Plan/Problems-Billing Assessment: Ms. Lin is a 62 y.o female with a PMHX of mild MR, and seasonal allergies that presented to the emergency room with cough and vomiting unable to tolerate food and po antibiotic. who found to have pneumonia - Patient Problems (1) Pneumonia Status: Acute Code(s): J18.9 - PNEUMONIA, UNSPECIFIED ORGANISM SNOMED Code(s ): 717605169 Comment: - Left lung base with patchy air space disease. - will stop azithromycin and ceftriaxone - will start augmentin 600 mg PO BID for 6 days - will continue cough syrup without codeine - encourage PO fluids (2) Nausea & vomiting Status: Acute Code(s): R11.2 - NAUSEA WITH VOMITING, UNSPECIFIED SNOMED Code (s): 97005026 Comment: resolved - con continue home zofran as needed for nausea as previously prescribed (3) DVT prophylaxis Status: Acute Code(s): ZMJ7198 - SNOMED Code(s): 354584561 Comment: juan (4) Full code status Status: Acute Code(s): Z78.9 - OTHER SPECIFIED HEALTH STATUS SNOMED Code(s) : 018495078 Status and Disposition: discharge home
--- NOTE | 2018-01-20 06:37 | DS ---
CC: Fortino Pelayo MD * DISCHARGE SUMMARY: DATE OF ADMISSION: 01/18/18 DATE OF DISCHARGE: 01/19/18 PROVIDER: Marcia Herbert NP ATTENDING PHYSICIAN: Alka Rey DO * (dictated by Marcia Herbert NP). PRIMARY CARE PROVIDER: Fortino Pelayo MD PRIMARY DIAGNOSIS: Pneumonia. SECONDARY DIAGNOSES: 1. Mild mitral regurgitation. 2. Seasonal allergies. 3. Chronic nausea. STUDIES COMPLETED WHILE IN THE HOSPITAL: She had a chest x-ray. Radiologist's impression: Patchy airspace disease in left lung base. DISCHARGE MEDICATIONS: New home medications: 1. Augmentin 600 mg p.o. b.i.d. for 6 days. 2. Guaifenesin cough syrup 5 mL q.4 hours as needed for cough. Discontinued medication: 1. Zithromax. Continued home medications: 1. Fluticasone nasal spray, 2 sprays both nares daily. 2. Zyrtec 10 mg p.o. daily. 3. Tessalon Perles 10 mg p.o. q.6 hours as needed for cough. 4. Acetaminophen 650 mg p.o. q.4 hours as needed for cough. HISTORY OF PRESENT ILLNESS AND HOSPITAL COURSE: Ms. Lin is a 62-year-old female with a past medical history significant for allergies and mild MR, who presented to the emergency room with mild MR and chronic nausea, who presented to the room today with vomiting and cough. The patient reports that she was seen at her primary care provider's office 2 days ago on and was started on the Z- Jonathon for cough and congestion. She reports that over the past month, she had tried allergy medications and cough medications with no relief. She reports that over the past 3 days, her cough has progressively gotten worse , so she followed up with her primary care provider, who then on placed her on a Z-Jonathon. She picked up the prescription on Saturday, attempted to take the medication on Saturday, but was nauseated and vomited after eating her lunch. She went home and tried to take her medication and vomited again and unable to keep the medication or food down. Today on the day of admission, the patient reports that she has been vomiting all morning. She reports some diarrhea. She states that she gets coughing to the point that it causes her to vomit, but has also been dry heaving intermittently between her coughing episodes. She does report she has felt fevers. Denies any chills. She does report a cough and shortness of breath. She does report some chest pain with her coughing. She does report nausea. She also reports vomiting. She also reports of diarrhea and abdominal pain with coughing. She denies any hematuria or dysuria. Denies any focal weakness or sensory loss. Denies any arthralgias or myalgias, rashes, lesions. Denies any depression or anxiety. While in the emergency room, she was seen and evaluated. Routine lab work was drawn and it was unremarkable. She had a chest x-ray that showed patchy airspace disease in the left lower lobe. Due to the concern for pneumonia, nausea and vomiting, and unable to tolerate her p.o. antibiotics, we were asked to see and evaluate her for admission. During her hospitalization, she was given IV normal saline, fluids, and was given cough suppressant. She was given IV azithromycin 500 mg and ceftriaxone 1 g IV. On the morning of her discharge, she is feeling well. She reports no vomiting this morning. She has been able to tolerate a clear liquid diet without any issues. The patient reports that she is feeling better and would like to go home. At this time, she is stable for discharge home. Vital signs are as follows: Temperature 98.7, heart rate 87, respirations 16, O2 saturation 96% on room air, blood pressure 130/60. DISCHARGE PLAN: Ms. Lin will be discharged back home. ACTIVITY: As tolerated. DIET: She should continue on a regular diet. 1. Pneumonia. She will be placed on Augmentin 600 mg p.o. b.i.d. x6 days. She can have guaifenesin 5 cc q.4 hours as needed for cough. She was encouraged to keep hydrated and drink plenty of fluids. 2. Chronic nausea. The patient can continue on her Zofran as previously prescribed. The patient was instructed to return to the emergency room for any chest pain, shortness of breath, or any worsening of her symptoms. This is a summarization of her hospitalization. For further details, please obtain the entire medical record. TIME SPENT: Time spent on this discharge was approximately 60 minutes, greater than half that time was spent with the patient discussing discharge plans and instructions. CONDITION ON DISCHARGE: Stable. MARCIA HERBERT, NOVELTY CHAIN MAKER [id number]/[facility] #: [id number] [facility]ENTERYesika
== END 2018-01-19 17:15 | disposition home or self-care (01) ==
LOC: ED 15:32 → MED 17:35
PROVIDERS: ADMIT Internal Medicine; ATTEND Hospitalist
DX: J18.9 Pneumonia, unspecified organism (principal); I34.0 Nonrheumatic mitral (valve) insufficiency; J30.2 Other seasonal allergic rhinitis; R11.2 Nausea with vomiting, unspecified; R07.9 Chest pain, unspecified; Z79.899 Other long term (current) drug therapy; E78.00 Pure hypercholesterolemia, unspecified; Z87.891 Personal history of nicotine dependence
CPT/HCPCS: 36415; 80053; 83605; 84145; 85025; 85610; 85730; 87040; 96365; 96375; 99284; A9270-GY; G0378; J0456; J0696; J1650; J2405

== ENCOUNTER 2018-02-28 10:48 | Emergency (ER) | payer OTHER ==
[2018-02-28] MEDS ORDERED: Meclizine TAB* 12.5 MG PO ONE (11:10)
[2018-02-28] MEDS ORDERED: NS 0.9% 1000 ML* 1,000 ML IV ONE (11:10)
[2018-02-28 11:37] LABS: ABS Basophils 0 10^3/ul (0-0.2); ABS Eosinophils 0.1 10^3/ul (0-0.6); ABS Monocytes 0.6 10^3/ul (0-0.8); ABS Neutrophils 3.5 10^3/ul (1.5-7.7); ABS Nucleated RBC 0 10^3/ul; Eosinophil % 0.9 % (0-6); Hematocrit 44 % (35-47); Hemoglobin 14.6 g/dl (12.0-16.0); Lymphocyte % 32.8 % (25-47); Mean Corpuscular HGB Conc 33 g/dl (31-36); Mean Corpuscular Hemoglobin 27 pg (27-31); Mean Corpuscular Volume 83 fL (80-97); Mean Platelet Volume 7.2 fL (7.4-10.4); Nucleated Red Blood Cells % 0; Platelet Count 310 10^3/ul (150-450); Red Blood Count 5.31 10^6/ul (4.00-5.40); Red Cell Distribution Width 14 % (10.5-15); White Blood Count 6.2 10^3/ul (3.5-10.8)
[2018-02-28 12:01] LABS: EGFR Non-African American 74.2 (>60)
--- NOTE | 2018-02-28 12:23 | ED ---
Dizziness - HPI Summary HPI Summary: A 62 y/o female presents to the ED c/o dizziness since getting out of bed on 02/27/2018. She claims that it feels like the room is spinning. She also c/o N/V and SOTELO. She denies blurred vision, SOB or CP. The pt states that she recently had PNA and is taking abx. - History Of Current Complaint Chief Complaint: EDDizziness Stated Complaint: DIZZINESS Time Seen by Provider: 02/28/18 10:54 Hx Obtained From: Patient Timing: Constant Severity Initially: Moderate Severity Currently: Moderate Character: Room Spinning Associated Signs And Symptoms: Positive: Nausea, Vomiting, Other: - SOTELO - Allergies/Home Medications Allergies/Adverse Reactions: Allergies Allergy/AdvReac Type Severity Reaction Status Date / Time venlafaxine [From Effexor] Allergy Dizziness Verified 01/18/18 15:37 ETOH Allergy Unknown GI Upset Uncoded 01/18/18 15:37 PMH/Surg Hx/FS Hx/Imm Hx Endocrine/Hematology History: Denies: Hx Diabetes, Hx Thyroid Disease Cardiovascular History: Reports: Hx Hypercholesterolemia Denies: Hx Aneurysm, Hx Atrial Fibrillation, Hx Congenital Heart Disease, Hx Congestive Heart Failure, Hx Hypertension, Hx Myocardial Infarction, Hx Valvular Heart Disease Respiratory History: Reports: Hx Seasonal Allergies, Other Respiratory Problems/ Disorders - has required neb tx's for cough in past Denies: Hx Asthma, Hx Chronic Obstructive Pulmonary Disease (COPD) GI History: Reports: Other GI Disorders - vomiting episodes Denies: Hx Gastroesophageal Reflux Disease, Hx Ulcer History: Denies: Hx Renal Disease Musculoskeletal History: Reports: Hx Back Problems - cervical kyphosis - in PT Sensory History: Reports: Hx Contacts or Glasses Denies: Hx Hearing Aid Opthamlomology History: Reports: Hx Contacts or Glasses Neurological History: Reports: Hx Migraine - has excederin but doesn't like to take, Other Neuro Impairments/Disorders - 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 Auditory hallucinations. Denies: Hx Eating Disorder, Hx of Violent Episodes Against Others Infectious Disease History: No Infectious Disease History: Denies: Hx Hepatitis, Hx Human Immunodeficiency Virus (HIV), History Other Infectious Disease, Traveled Outside the [place] in Last 30 Days - Family History Known Family History: Positive: Cardiac Disease - sister of [place] @ 47. - Social History Alcohol Use: None Hx Substance Use: No Substance Use Type: Reports: None Hx Tobacco Use: Yes Smoking Status (MU): Former Smoker Have You Smoked in the Last Year: No Review of Systems Negative: Blurred Vision Negative: Chest Pain Negative: Shortness Of Breath Positive: Vomiting, Nausea Neurological: Other - Positive: dizziness, room spinning All Other Systems Reviewed And Are Negative: Yes Physical Exam - Summary Physical Exam Summary: VITAL SIGNS: Reviewed. GENERAL: Patient is a well-developed and nourished FEMALE who is lying comfortable in the stretcher. Patient is not in any acute respiratory distress. HEAD AND FACE: No signs of trauma. No ecchymosis, hematomas or skull depressions. No sinus tenderness. EYES: PERRLA, EOMI x 2, No injected conjunctiva, no nystagmus. EARS: Hearing grossly intact. Ear canals and tympanic membranes are within normal limits. MOUTH: Dry oral mucosa. NECK: Supple, trachea is midline, no adenopathy, no JVD, no carotid bruit, no c- spine tenderness, neck with full ROM. CHEST: Symmetric, no tenderness at palpation LUNGS: Clear to auscultation bilaterally. No wheezing or crackles. CVS: Regular rate and rhythm, S1 and S2 present, no murmurs or gallops appreciated. ABDOMEN: Soft, non-tender. No signs of distention. No rebound no guarding, and no masses palpated. Bowel sounds are normal. EXTREMITIES: FROM in all major joints, no edema, no cyanosis or clubbing. NEURO: Alert and oriented x 3. No acute neurological deficits. Speech is normal and follows commands. SKIN: Dry and warm GCS: 15. Triage Information Reviewed: Yes Vital Signs On Initial Exam: Initial Vitals Pulse BP Pulse Ox 78 131/78 96 02/28/18 10:52 02/28/18 10:52 02/28/18 10:52 Vital Signs Reviewed: Yes Diagnostics - Vital Signs Vital Signs Temp Pulse Resp BP Pulse Ox 02/28/18 11:00 74 96 02/28/18 10:54 76 96 02/28/18 10:53 98.1 F 73 14 131/78 97 02/28/18 10:52 78 131/78 96 - Laboratory Lab Results: Lab Results 02/28/18 02/28/18 02/28/18 Range/Units 11:16 11:19 11:19 WBC 6.2 (3.5-10.8) 10^3/ul RBC 5.31 (4.00-5.40) 10^6/ul Hgb 14.6 (12.0-16.0) g/dl Hct 44 (35-47) % MCV 83 (80-97) fL MCH 27 (27-31) pg MCHC 33 (31-36) g/dl RDW 14 (10.5-15) % Plt Count 310 (150-450) 10^3/ul MPV 7.2 L (7.4-10.4) fL Neut % (Auto) 55.9 (38-83) % Lymph % (Auto) 32.8 (25-47) % [place] % (Auto) 9.9 H (0-7) % Eos % (Auto) 0.9 (0-6) % Baso % (Auto) 0.5 (0-2) % Absolute Neuts (auto) 3.5 (1.5-7.7) 10^3/ul Absolute Lymphs (auto) 2.0 (1.0-4.8) 10^3/ul Absolute Monos (auto) 0.6 (0-0.8) 10^3/ul Absolute Eos (auto) 0.1 (0-0.6) 10^3/ul Absolute Basos (auto) 0 (0-0.2) 10^3/ul Absolute Nucleated RBC 0 10^3/ul Nucleated RBC % 0 Sodium 141 (135-145) mmol/L Potassium 3.6 (3.5-5.0) mmol/L Chloride 104 (101-111) mmol/L Carbon Dioxide 28 (22-32) mmol/L Anion Gap 9 (2-11) mmol/L BUN 14 (6-24) mg/dL Creatinine 0.79 (0.51-0.95) mg/dL Est GFR ( Amer) 89.8 (>60) Est GFR (Non-Af Amer) 74.2 (>60) BUN/Creatinine Ratio 17.7 (8-20) Glucose 89 (70-100) mg/dL Lactic Acid 0.9 (0.5-2.0) mmol/L Calcium 9.2 (8.6-10.3) mg/dL Magnesium 1.9 (1.9-2.7) mg/dL Total Bilirubin 0.50 (0.2-1.0) mg/dL AST 15 (13-39) U/L ALT 17 (7-52) U/L Alkaline Phosphatase 45 (34-104) U/L Troponin I 0.00 (<0.04) ng/mL C-Reactive Protein 1.10 (<8.01) mg/L B-Natriuretic Peptide (<=100) pg/mL Total Protein 7.0 (6.4-8.9) g/dL Albumin 4.2 (3.2-5.2) g/dL Globulin 2.8 (2-4) g/dL Albumin/Globulin Ratio 1.5 (1-3) TSH 0.69 (0.34-5.60) mcIU/mL Serum Alcohol < 10 (<10) mg/dL 02/28/18 Range/Units 11:19 WBC (3.5-10.8) 10^3/ul RBC (4.00-5.40) 10^6/ul Hgb (12.0-16.0) g/dl Hct (35-47) % MCV (80-97) fL MCH (27-31) pg MCHC (31-36) g/dl RDW (10.5-15) % Plt Count (150-450) 10^3/ul MPV (7.4-10.4) fL Neut % (Auto) (38-83) % Lymph % (Auto) (25-47) % Rad[place] % (Auto) (0-7) % Eos % (Auto) (0-6) % Baso % (Auto) (0-2) % Absolute Neuts (auto) (1.5-7.7) 10^3/ul Absolute Lymphs (auto) (1.0-4.8) 10^3/ul Absolute Monos (auto) (0-0.8) 10^3/ul Absolute Eos (auto) (0-0.6) 10^3/ul Absolute Basos (auto) (0-0.2) 10^3/ul Absolute Nucleated RBC 10^3/ul Nucleated RBC % Sodium (135-145) mmol/L Potassium (3.5-5.0) mmol/L Chloride (101-111) mmol/L Carbon Dioxide (22-32) mmol/L Anion Gap (2-11) mmol/L BUN (6-24) mg/dL Creatinine (0.51-0.95) mg/dL Est GFR ( Amer) (>60) Est GFR (Non-Af Amer) (>60) BUN/Creatinine Ratio (8-20) Glucose (70-100) mg/dL Lactic Acid (0.5-2.0) mmol/L Calcium (8.6-10.3) mg/dL Magnesium (1.9-2.7) mg/dL Total Bilirubin (0.2-1.0) mg/dL AST (13-39) U/L ALT (7-52) U/L Alkaline Phosphatase (34-104) U/L Troponin I (<0.04) ng/mL C-Reactive Protein (<8.01) mg/L B-Natriuretic Peptide 28 (<=100) pg/mL Total Protein (6.4-8.9) g/dL Albumin (3.2-5.2) g/dL Globulin (2-4) g/dL Albumin/Globulin Ratio (1-3) TSH (0.34-5.60) mcIU/mL Serum Alcohol (<10) mg/dL Result Diagrams: 02/28/18 11:19 02/28/18 11:16 Lab Statement: Any lab studies that have been ordered have been reviewed, and results considered in the medical decision making process. - Radiology CXR Radiology Interpretation Completed By: Radiologist - No active cardiopulmonary disease. This report has been reviewed by the ED physician. - CT Brain CT Interpretation Completed By: Radiologist - No acute intracranial pathology. ED physicain has reviewed this report. - EKG 12:02 Cardiac Rate: Tachycardia - 118 bpm EKG Rhythm: Sinus Tachycardia Summary of EKG Findings: No ST elevation Dizzy Course/Dx - Course Assessment/Plan: A 62 y/o female presents to the ED c/o dizziness since getting out of bed on 02/27/2018. She claims that it feels like the room is spinning. She also c/o N/V and SOTELO. She denies blurred vision, SOB or CP. The pt states that she recently had PNA and is taking abx. Blood work without any significant abnormality. Chest x-ray impression: No active cardiopulmonary disease. Head CT impression: no acute interconnected pathology. In the ED course the patient was given IV fluids for rehydration, she was given Zofran for nausea and she was given Antivert for the dizziness. After medications his symptoms have improved. I ambulated the patient and she has a good steady walk. The patient reports that all of her symptoms have improved. I discussed all the findings and test results with the patient. Patient was instructed to return to the emergency room immediately if any of the symptoms return or worsens. Plan of care was discussed with the patient and understands and agrees. All questions were answered at patient satisfaction. There were no further complaints or concerns. Lung exam before discharge: CTA B/L. Good air exchange. No wheezing or crackles heard. CVS: S1 and S2 present. No murmurs appreciated. Patient is alert and oriented x 3. Patient is hemodynamically stable. Patient will be discharged home with follow up PCP in the next 2-3 days - Diagnoses Differential Diagnosis/HQI/PQRI: Benign Paroxysmal Positional Vertigo, CVA, Dysrhythmia, Meniere's Disease, Medication Reaction, Seizure, Transient Ischemic Attack, Vasovagal Reaction Provider Diagnoses: Vertigo Discharge - Sign-Out/Discharge Documenting (check all that apply): Patient Departure - DC - Discharge Plan Condition: Stable Disposition: HOME Prescriptions: Meclizine TAB* [Antivert 12.5 TAB*] 25 mg PO TID PRN #30 tab PRN Reason: Vertigo Ondansetron ODT TAB* [Zofran 4 MG Odt TAB*] 4 mg PO Q6H PRN #10 tab.odt PRN Reason: Nausea Patient Education Materials: Vertigo (ED) Referrals: Fortino Pelayo MD [Primary Care Provider] - 3 Days Additional Instructions: Return to the Emergency department if you experience any changing or worsening symptoms. - Billing Disposition and Condition Condition: STABLE Disposition: Home - Attestation Statements Document Initiated by Gayleibe: Yes Documenting Scribe: Isaak Ellison Provider For Whom Braulio is Documenting (Include Credential): Ildefonso Chanel MD Scribe Attestation: Isaak Merlos scribed for Ildefonso Chanel MD on 03/01/18 at 0831. Scribe Documentation Reviewed: Yes Provider Attestation: The documentation as recorded by the Isaak martínez accurately reflects the service I personally performed and the decisions made by me, Ildefonso Chanel MD Attestations User Type: Provider with Scribe Provider Attestation: The documentation recorded by the scribe accurately reflects the service I personally performed and the decisions made by me.
[2018-02-28 13:49] VITALS: BP 132/69
== END 2018-02-28 14:01 | disposition home or self-care (01) ==
LOC: ED 10:48
DX: R42 Dizziness and giddiness (principal); Z87.891 Personal history of nicotine dependence
CPT/HCPCS: 36415; 70450; 71045; 80053; 80320; 83605; 83735; 83880; 84443; 84484; 85025; 86140; 93005; 96360; 96361; 99282; A9270-GY; G0480

== ENCOUNTER 2018-04-07 13:17 | Emergency (ER) | payer OTHER ==
--- NOTE | 2018-04-07 13:22 | UC ---
Dizzy HPI HPI Summary: 62 yo female presents with dizziness. She is cognitively impaired and is thus accompanied by a diver's tender from [facility] Pt states that her dizziness began as mild last night night and this morning. Then [facility] [place] [facility] and her dizziness quickly became severe. She had difficulty standing. Describes it as the room spinning and like she is going to fall over. She also has a mild headache generalized. She was feeling well before yesterday and denies fever, chills, SOB, chest pain, abdominal pain, n/v , dysuria, or vision changes. I noticed that she has a history of dizziness and has been evaluated in the ED on multiple occasions, I asked if this dizziness today feels the same as her past dizziness and she says "yes sort of". - History Of Current Complaint Stated Complaint: DIZZINESS, BODY ACHES Time Seen by Provider: 04/07/18 13:22 Hx Obtained From: Patient Hx Last Menstrual Period: today Onset/Duration: Sudden Onset Timing: Constant Severity Currently: None - Allergies/Home Medications Allergies/Adverse Reactions: Allergies Allergy/AdvReac Type Severity Reaction Status Date / Time venlafaxine [From Effexor] Allergy Dizziness Verified 04/07/18 14:46 ETOH Allergy Unknown GI Upset Uncoded 04/07/18 14:46 PMH/Surg Hx/FS Hx/Imm Hx - Additional Past Medical History Additional PMH: Allergies Vertigo Cognitive impairment - Surgical History Surgical History: None - Family History Known Family History: Positive: Cardiac Disease - sister of [place] @ 47. - Social History Occupation: Disabled Lives: Assisted Living Alcohol Use: None Substance Use Type: None Smoking Status (MU): Former Smoker Have You Smoked in the Last Year: No Review of Systems All Other Systems Reviewed And Are Negative: Yes Constitutional: Positive: Negative Skin: Positive: Negative Eyes: Positive: Negative ENT: Positive: Negative Respiratory: Positive: Negative Cardiovascular: Positive: Negative Gastrointestinal: Positive: Negative Neurovascular: Positive: Negative Neurological: Positive: Headache, Other - Dizziness Psychological: Positive: Negative Physical Exam - Summary Physical Exam Summary: GENERAL: NAD. WDWN. No pain distress. SKIN: No rashes, sores, ulcers, masses, lesions. HEENT: Head: AT/NC Eyes: PERRLA. EOMI, but has difficulty tracking finger. Ears: Hearing grossly normal. TMs intact, no bulging, erythema, or edema. NECK: Supple. Nontender. No lymphadenopathy. CHEST: CTAB. No r/r/w. No accessory muscle use. Breathing comfortably and in no distress. CV: RRR. Without m/r/g. Pulses intact. Brisk cap refill. ABDOMEN: Soft. NTTP. No distention or guarding. Bowel sounds present MSK: FROM in B/L UEs and LEs. Left UE with 4/5 strength compared to right. Extractor Operator strength 3/5 on left compared to right. NEURO: A&Ox3. 3 word recall, remote, recent memory, ability to follow 2-step directions, and attention intact. CN: II: Peripheral alarcon intact. Vision normal. III, IV, : EOMI, but has difficulty tracking finger. No nystagmus. PERRLA. V: Sensations intact and symmetric. Opens mouth and clenches teeth. VII: No facial asymmetry. Forehead wrinkles. Grins, shuts eyes, frowns, puffs cheeks. VIII: Hearing intact to finger rub. IX, X: Swallows and coughs. Uvula midline. XI: Shrugs shoulders. Turns head against resistance. XII: No tongue deviation. [id number]-[id number] are intact. Gait with shuffling. Normal speech. No facial drooping. PSYCH: Age appropriate behavior. Triage Information Reviewed: Yes Vital Signs: Vital Signs: Temp Pulse Resp BP Pulse Ox 97.8 F 92 19 142/74 99 04/07/18 13:22 04/07/18 13:22 04/07/18 13:22 04/07/18 13:22 04/07/18 13:22 Vital Signs Reviewed: Yes Dizzy Course/Dx - Course Course Of Treatment: I discussed with the pt that we could try to evaluate and treat her dizziness here with fluids, antivert, and CT scan - but if she does not improve, would recommend transfer to the ED. She declined this and would prefer to go directly to the ED. She elected to go by ambulance. Left via [place] in stable condition. Report called to Dr. Kemp in the ED. - Differential Dx/Diagnosis Provider Diagnosis: Dizziness Discharge - Sign-Out/Discharge Documenting (check all that apply): Patient Departure All imaging exams completed and their final reports reviewed: No Studies - Discharge Plan Condition: Stable Disposition: TRANS HIGHER LVL OF CARE FAC Referrals: Fortino Pelayo MD [Primary Care Provider] - - Billing Disposition and Condition Condition: STABLE Disposition: Trans Higher Lvl of Care Fac - Attestation Statements Provider Attestation: I was available for consult. This patient was seen by the JENN. The patient was not presented to, seen by, or examined by me. -Naga
[2018-04-07 13:31] VITALS: BP 142/74
[2018-04-07] MEDS ORDERED: NS 0.9% 1000 ML* 1,000 ML IV ONE (13:47)
== END 2018-04-07 14:07 | disposition short-term general hospital (02) ==
LOC: UCEAST 13:17
DX: R42 Dizziness and giddiness (principal); Z88.8 Allergy status to other drugs, medicaments and biological substances; Z87.891 Personal history of nicotine dependence
CPT/HCPCS: 93005; 99213; G0463

== ENCOUNTER 2018-04-07 14:32 | Emergency (ER) | payer OTHER ==
--- NOTE | 2018-04-07 14:53 | ED ---
Dizziness - HPI Summary HPI Summary: Patient is a 62 y/o F presenting to ED with complaints of dizziness onsetting this morning. [facility] and sent to ED for further workup. PMHx of vertigo, patient states that today's Sx are similar to her vertigo episodes. Dizziness is characterized as room-spinning. In the room, patient states dizziness has resolved. Patient notes that she takes her medications in the evening. She also reports left ankle pain. N/V, blurred vision, chest pain, SOB, photophobia, SOTELO, palpitations, weakness are denied. On triage, pain is rated 1/10, nothing is noted to aggravate/alleviate Sx. Home medications and allergies are reviewed. - History Of Current Complaint Chief Complaint: EDDizziness Stated Complaint: DIZZINESS Time Seen by Provider: 04/07/18 14:40 Hx Obtained From: Patient Onset/Duration: Resolved Timing: Hours - onset this morning Severity Currently: Mild - 1/10 pain on triage Character: Room Spinning, Dizzy Aggravating Factor(s): Nothing Alleviating Factor(s): Nothing Associated Signs And Symptoms: Positive: Other: - POSITIVE - DIZZINESS, LEFT ANKLE PAIN. Negative: Nausea, Chest Pain, Visual Changes - Allergies/Home Medications Allergies/Adverse Reactions: Allergies Allergy/AdvReac Type Severity Reaction Status Date / Time venlafaxine [From Effexor] Allergy Dizziness Verified 04/07/18 14:46 ETOH Allergy Unknown GI Upset Uncoded 04/07/18 14:46 Home Medications: Home Medications ARIPiprazole TAB* [Abilify 2 MG TAB*] 2 mg PO DAILY 04/07/18 [History Confirmed 04/07/18] Calcium Polycarbophil TAB* [Fibercon TAB*] 625 mg PO BID 04/07/18 [History Confirmed 04/07/18] Cetirizine* [ZyrTEC 10 MG TAB*] 10 mg PO DAILY 04/07/18 [History Confirmed 04/07] Docusate CAP* [Colace Cap*] 100 mg PO BID PRN 04/07/18 [History Confirmed ] Meclizine TAB* [Antivert 12.5 TAB*] 12.5 mg PO TID PRN 04/07/18 [History Confirmed 04/07/18] PMH/Surg Hx/FS Hx/Imm Hx Endocrine/Hematology History: Denies: Hx Diabetes, Hx Thyroid Disease Cardiovascular History: Reports: Hx Hypercholesterolemia Denies: Hx Aneurysm, Hx Atrial Fibrillation, Hx Congenital Heart Disease, Hx Congestive Heart Failure, Hx Hypertension, Hx Myocardial Infarction, Hx Valvular Heart Disease Respiratory History: Reports: Hx Seasonal Allergies, Other Respiratory Problems/ Disorders - has required neb tx's for cough in past Denies: Hx Asthma, Hx Chronic Obstructive Pulmonary Disease (COPD) GI History: Reports: Other GI Disorders - vomiting episodes Denies: Hx Gastroesophageal Reflux Disease, Hx Ulcer History: Denies: Hx Renal Disease Musculoskeletal History: Reports: Hx Back Problems - cervical kyphosis - in PT Sensory History: Reports: Hx Contacts or Glasses Denies: Hx Hearing Aid Opthamlomology History: Reports: Hx Contacts or Glasses Neurological History: Reports: Hx Migraine - has excederin but doesn't like to take, Other Neuro Impairments/Disorders - 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 Auditory hallucinations. Denies: Hx Eating Disorder, Hx of Violent Episodes Against Others Infectious Disease History: No Infectious Disease History: Denies: Hx Hepatitis, Hx Human Immunodeficiency Virus (HIV), History Other Infectious Disease, Traveled Outside the [place] in Last 30 Days - Family History Known Family History: Positive: Cardiac Disease - sister of [place] @ 47. - Social History Alcohol Use: None Hx Substance Use: No Substance Use Type: Reports: None Hx Tobacco Use: Yes Smoking Status (MU): Former Smoker Have You Smoked in the Last Year: No Review of Systems Negative: Photophobia, Blurred Vision Negative: Palpitations, Chest Pain Negative: Shortness Of Breath Negative: Vomiting, Nausea Positive: Other - POSITIVE - LEFT ANKLE PAIN Neurological: Other - POSITIVE - DIZZINESS, SINCE RESOLVED Negative: Headache, Weakness All Other Systems Reviewed And Are Negative: Yes Physical Exam - Summary Physical Exam Summary: VITAL SIGNS: Reviewed. GENERAL: Patient is a well-developed and nourished female who is lying comfortable in the stretcher. Patient is not in any acute respiratory distress. HEAD AND FACE: No signs of trauma. No ecchymosis, hematomas or skull depressions. No sinus tenderness. EYES: PERRLA, EOMI x 2, No injected conjunctiva, no nystagmus. EARS: Hearing grossly intact. Ear canals and tympanic membranes are within normal limits. MOUTH: Oropharynx within normal limits. NECK: Supple, trachea is midline, no adenopathy, no JVD, no carotid bruit, no c- spine tenderness, neck with full ROM. CHEST: Symmetric, no tenderness at palpation LUNGS: Clear to auscultation bilaterally. No wheezing or crackles. CVS: Regular rate and rhythm, S1 and S2 present, no murmurs or gallops appreciated. ABDOMEN: Soft, non-tender. No signs of distention. No rebound no guarding, and no masses palpated. Bowel sounds are normal. EXTREMITIES: FROM in all major joints, no edema, no cyanosis or clubbing. NEURO: Alert and oriented x 3. No acute neurological deficits. Speech is normal and follows commands. SKIN: Dry and warm Triage Information Reviewed: Yes Vital Signs On Initial Exam: Initial Vitals Temp Pulse Resp BP Pulse Ox 98.4 F 86 16 122/70 97 04/07/18 14:40 04/07/18 14:40 04/07/18 14:40 04/07/18 14:40 04/07/18 14:40 Vital Signs Reviewed: Yes Diagnostics - Vital Signs Vital Signs Temp Pulse Resp BP Pulse Ox 04/07/18 14:40 98.4 F 86 16 122/70 97 - Laboratory Lab Statement: Any lab studies that have been ordered have been reviewed, and results considered in the medical decision making process. - Radiology left ankle x-ray Radiology Interpretation Completed By: Radiologist Summary of Radiographic Findings: IMPRESSION: NO ACUTE OSSEOUS INJURY. IF SYMPTOMS PERSIST, RECOMMEND REPEAT IMAGING. THIS REPORT WAS REVIEWED BY ED PHYSICIAN. Re-Evaluation - Re-Evaluation First Eval Re-Evaluation Time: 14:40 Change: Improved Comment: At this point the patient is ambulating good steady walk and she doesn' t have any vertigo. Discussed all the findings and test results with the patient. Patient was instructed to return to the emergency room immediately if any of the symptoms return or worsens. Plan of care was discussed with the patient and understands and agrees. All questions were answered at patient satisfaction. There were no further complaints or concerns. Lung exam before discharge: CTA B/L. Good air exchange. No wheezing or crackles heard. CVS: S1 and S2 present. No murmurs appreciated. Patient is alert and oriented x 3. Patient is hemodynamically stable. Patient will be discharged home with follow up PCP in the next 2-3 days Dizzy Course/Dx - Course Assessment/Plan: Patient is a 62 y/o F presenting to ED with complaints of dizziness onsetting this morning. [facility] at [facility] and sent to ED for further workup. PMHx of vertigo, patient states that today's Sx are similar to her vertigo episodes. Dizziness is characterized as room-spinning. In the room, patient states dizziness has resolved. Patient notes that she takes her medications in the evening. She also reports left ankle pain. N/V, blurred vision, chest pain, SOB, photophobia, SOTELO, palpitations, weakness are denied. On triage, pain is rated 1/10, nothing is noted to aggravate/alleviate Sx. Home medications and allergies are reviewed. Patient main complaint right now is a left ankle pain for the last couple days after she twisted her ankle. She reports no dizziness. She took antivert and her symptoms resolved. At the ED she denies any dizziness, weakness, or nausea or vomiting. She denies any headache, blurred vision. Photophobia, chest pain shortness of breath or palpitations. Patient reports that the symptoms are similar as when she has vertigo. Patient has Antivert which usually helps. In the neurological exam the patient has no acute neurological deficits, she doesn't have any nystagmus therefore this time I do not feel that the patient needs a head CT. The patient declined any Antivert since the symptoms resolved. X-ray of the ankle impression: No acute fracture dislocation. At this point the patient is ambulating good steady walk and she doesn't have any vertigo therefore the patient will be discharged home with follow-up with primary care physician. I discussed all the findings and test results with the patient. Patient was instructed to return to the emergency room immediately if any of the symptoms return or worsens. Plan of care was discussed with the patient and understands and agrees. All questions were answered at patient satisfaction. There were no further complaints or concerns. Lung exam before discharge: CTA B/L. Good air exchange. No wheezing or crackles heard. CVS: S1 and S2 present. No murmurs appreciated. Patient is alert and oriented x 3. Patient is hemodynamically stable. Patient will be discharged home with follow up PCP in the next 2-3 days - Diagnoses Provider Diagnoses: Vertigo, Ankle pain Discharge - Sign-Out/Discharge Documenting (check all that apply): Patient Departure - discharge - Discharge Plan Condition: Stable Disposition: HOME Patient Education Materials: Ankle Sprain (ED), Dizziness (ED) Referrals: Fortino Pelayo MD [Primary Care Provider] - 3 Days Additional Instructions: RETURN TO ED FOR ANY NEW OR WORSENING SYMPTOMS. FOLLOW UP WITH PRIMARY CARE PHYSICIAN IN THREE DAYS. - Billing Disposition and Condition Condition: STABLE Disposition: Home - Attestation Statements Document Initiated by Braulio: Yes Documenting Scribe: OLINDA CORDERO Provider For Whom Braulio is Documenting (Include Credential): ZAINAB GILBERT MD Scribe Attestation: OLINDA Merlos , scribed for ZAINAB GILBERT MD on 04/07/18 at 1814. Scribe Documentation Reviewed: Yes Provider Attestation: The documentation as recorded by the gerardoibOLINDA gruber accurately reflects the service I personally performed and the decisions made by me, ZAINAB GILBERT MD Status of Scribe Document: Viewed
[2018-04-07 16:15] VITALS: BP 119/87
== END 2018-04-07 16:14 | disposition home or self-care (01) ==
LOC: ED 14:32
DX: R42 Dizziness and giddiness (principal); M25.572 Pain in left ankle and joints of left foot; Z87.891 Personal history of nicotine dependence
CPT/HCPCS: 99283

== ENCOUNTER 2018-06-15 13:16 | Emergency (ER) | payer OTHER ==
[2018-06-15] MEDS ORDERED: Cyclobenzaprine TAB* 10 MG PO ONE (14:04)
[2018-06-15] MEDS ORDERED: Ibuprofen TAB* 600 MG PO ONE (14:05)
--- NOTE | 2018-06-15 14:34 | ED ---
Back Pain - HPI Summary HPI Summary: Patient is a 62yo F with a hx of back pain intermittently presenting to the ED with acute diffuse back pain since this morning. Patient states she "tweaked" her back. She has done this several times in the past and usually takes tylenol or ibuprofen for relief. She did not take this medication prior to arrival. Patient states she has been in the ED for same before but is unsure what they have given her for relief. She denies taking any pain medications and declines this on arrival. She denies any trauma. - History of Current Complaint Chief Complaint: EDBackInjuryPain Stated Complaint: BACK PAIN Time Seen by Provider: 06/15/18 13:30 Hx Obtained From: Patient Hx Last Menstrual Period: today Onset/Duration: Sudden Onset Onset/Duration: Started Hours Ago Timing: Constant Back Pain Location: Is Diffuse - diffuse back pain Severity Initially: Moderate Severity Currently: Moderate Pain Intensity: 10 Pain Scale Used: 0-10 Numeric Character: Aching Aggravating Symptom(s): Lifting, Bending Alleviating Symptom(s): Rest, Position Associated Signs And Symptoms: Negative: Swelling, Redness, Bruising, Flank Pain , Bladder Incontinence - Risk Factors AAA Risk Factors: Negative TAD Risk Factors: Negative Cauda Equina Risk Factors: Negative Epidural Abscess Risk Factors: Negative - Allergies/Home Medications Allergies/Adverse Reactions: Allergies Allergy/AdvReac Type Severity Reaction Status Date / Time venlafaxine [From Effexor] Allergy Dizziness Verified 06/15/18 13:27 ETOH Allergy Unknown GI Upset Uncoded 06/15/18 13:27 Home Medications: Home Medications Ondansetron ODT TAB* [Zofran 4 MG Odt TAB*] 4 mg PO Q6H PRN 06/15/18 [History Confirmed 06/15/18] PMH/Surg Hx/FS Hx/Imm Hx Previously Healthy: Yes Endocrine/Hematology History: Denies: Hx Diabetes, Hx Thyroid Disease Cardiovascular History: Reports: Hx Hypercholesterolemia Denies: Hx Aneurysm, Hx Atrial Fibrillation, Hx Congenital Heart Disease, Hx Congestive Heart Failure, Hx Hypertension, Hx Myocardial Infarction, Hx Valvular Heart Disease Respiratory History: Reports: Hx Seasonal Allergies, Other Respiratory Problems/ Disorders - has required neb tx's for cough in past Denies: Hx Asthma, Hx Chronic Obstructive Pulmonary Disease (COPD) GI History: Reports: Other GI Disorders - vomiting episodes Denies: Hx Gastroesophageal Reflux Disease, Hx Ulcer History: Denies: Hx Renal Disease Musculoskeletal History: Reports: Hx Back Problems - cervical kyphosis - in PT Sensory History: Reports: Hx Contacts or Glasses Denies: Hx Hearing Aid Opthamlomology History: Reports: Hx Contacts or Glasses Neurological History: Reports: Hx Migraine - has excederin but doesn't like to take, Other Neuro Impairments/Disorders - 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 Auditory hallucinations. Denies: Hx Eating Disorder, Hx of Violent Episodes Against Others - Immunization History Hx Pertussis Vaccination: No Immunizations Up to Date: Yes Infectious Disease History: No Infectious Disease History: Denies: Hx Hepatitis, Hx Human Immunodeficiency Virus (HIV), History Other Infectious Disease, Traveled Outside the [place] in Last 30 Days - Family History Known Family History: Positive: Cardiac Disease - sister of [place] @ 47. - Social History Occupation: Unemployed Lives: Alone Alcohol Use: None Hx Substance Use: No Substance Use Type: Reports: None Hx Tobacco Use: Yes Smoking Status (MU): Former Smoker Have You Smoked in the Last Year: No Review of Systems Constitutional: Negative Negative: Fever, Chills, Fatigue, Skin Diaphoresis Negative: Palpitations, Chest Pain Negative: Shortness Of Breath, Cough Genitourinary: Negative Positive: no symptoms reported, see HPI Positive: Arthralgia - diffuse back pain Neurological: Negative All Other Systems Reviewed And Are Negative: Yes Physical Exam Triage Information Reviewed: Yes Vital Signs On Initial Exam: Initial Vitals Temp Pulse Resp BP Pulse Ox 98.8 F 92 18 90/67 94 06/15/18 13:19 06/15/18 13:19 06/15/18 13:19 06/15/18 13:19 06/15/18 13:19 Vital Signs Reviewed: Yes Appearance: Positive: Well-Appearing, Well-Nourished Skin: Positive: Warm, Skin Color Reflects Adequate Perfusion Head/Face: Positive: Normal Head/Face Inspection Eyes: Positive: EOMI, TG, Conjunctiva Clear Neck: Positive: Supple, No Lymphadenopathy Respiratory/Lung Sounds: Positive: Clear to Auscultation, Breath Sounds Present Cardiovascular: Positive: RRR, Pulses are Symmetrical in both Upper and Lower Extremities Musculoskeletal: Positive: Pain @ - diffuse back pain Neurological: Positive: Speech Normal Psychiatric: Positive: Affect/Mood Appropriate Diagnostics - Vital Signs Vital Signs Temp Pulse Resp BP Pulse Ox 06/15/18 13:19 98.8 F 92 18 90/67 94 - Laboratory Lab Statement: Any lab studies that have been ordered have been reviewed, and results considered in the medical decision making process. Back Pain Course/Dx - Course Course Of Treatment: During the course of treatment, the patient declines any pain medication. She has diffuse pain throughout the back, stating she " tweaked it." She denies any bladder or bowel dysfunction. Denies any N/T to the bilateral lower ext. She is having direct pressure over the right sciatic notch which is radiating to the right posterior lower extremity.She is given flexeril, prednisone and ibuprofen in the ED with good relief. Patient ambulates well. Mother at bedside. I discussed treatment options with the patient. She will have Flexeril, prednisone, ibuprofen and heat to the area. - Diagnoses Differential Diagnosis/HQI/PQRI: Positive: Strain, Sprain Provider Diagnoses: Sciatica Discharge - Sign-Out/Discharge Documenting (check all that apply): Patient Departure Patient Received Moderate/Deep Sedation with Procedure: No - Discharge Plan Condition: Stable Disposition: HOME Prescriptions: Cyclobenzaprine TAB* [Flexeril TAB*] 10 mg PO BID PRN #10 tab PRN Reason: Spasms predniSONE TAB* [Deltasone TAB*] 50 mg PO DAILY #5 tab MDD 1 Patient Education Materials: Sciatica (ED), Lumbar Radiculopathy (ED) Referrals: Fortino Pelayo MD [Primary Care Provider] - Additional Instructions: Flexeril twice daily as needed for muscle spasms This should be taken immediately before bed and sometime after waking or in the early afternoon You may take your next dose at 8 or 9 PM this evening just before bed Ibuprofen 600 mg 3 times daily 3 days This should be taken with food Prednisone - take once daily in the morning x 4 days Your next dose of prednisone is tomorrow morning Heat packs throughout the day will help with discomfort - Billing Disposition and Condition Condition: STABLE Disposition: Home
[2018-06-15 15:38] VITALS: BP 103/79
== END 2018-06-15 15:36 | disposition home or self-care (01) ==
LOC: ED 13:16
DX: M54.31 Sciatica, right side (principal); Z88.8 Allergy status to other drugs, medicaments and biological substances; Z91.048 Other nonmedicinal substance allergy status; Z87.891 Personal history of nicotine dependence
CPT/HCPCS: 99282; A9270-GY

== ENCOUNTER 2018-08-06 16:07 | Emergency (ER) | payer OTHER ==
[2018-08-06] MEDS ORDERED: Lidocaine PATCH 5%* 1 PATCH TRANSDERM ONE (16:47)
[2018-08-06] MEDS ORDERED: Cyclobenzaprine TAB* 10 MG PO ONE (16:48)
--- NOTE | 2018-08-06 16:51 | ED ---
Back Pain - HPI Summary HPI Summary: 62 year old female presents with back pain for the past couple days. She states that it is lower back. She states she was walking when she developed pain. no leg pain. no loss of bowel or bladder. No saddle anesthesias. She denies any fever. She has been taking ibuprofen for the pain with some relief. No numbness or tingling. No weakness. Has history of back pain. States is different location. - History of Current Complaint Chief Complaint: EDBackInjuryPain Stated Complaint: BACK WENT OUT ON ME PER PT Time Seen by Provider: 08/06/18 16:42 Hx Last Menstrual Period: today Pain Intensity: 10 - Allergies/Home Medications Allergies/Adverse Reactions: Allergies Allergy/AdvReac Type Severity Reaction Status Date / Time venlafaxine [From Effexor] Allergy Dizziness Verified 06/15/18 13:27 ETOH Allergy Unknown GI Upset Uncoded 06/15/18 13:27 PMH/Surg Hx/FS Hx/Imm Hx Endocrine/Hematology History: Denies: Hx Diabetes, Hx Thyroid Disease Cardiovascular History: Reports: Hx Hypercholesterolemia Denies: Hx Aneurysm, Hx Atrial Fibrillation, Hx Congenital Heart Disease, Hx Congestive Heart Failure, Hx Hypertension, Hx Myocardial Infarction, Hx Valvular Heart Disease Respiratory History: Reports: Hx Seasonal Allergies, Other Respiratory Problems/ Disorders - has required neb tx's for cough in past Denies: Hx Asthma, Hx Chronic Obstructive Pulmonary Disease (COPD) GI History: Reports: Other GI Disorders - vomiting episodes Denies: Hx Gastroesophageal Reflux Disease, Hx Ulcer History: Denies: Hx Renal Disease Musculoskeletal History: Reports: Hx Back Problems - cervical kyphosis - in PT Sensory History: Reports: Hx Contacts or Glasses Denies: Hx Hearing Aid Opthamlomology History: Reports: Hx Contacts or Glasses Neurological History: Reports: Hx Migraine - has excederin but doesn't like to take, Other Neuro Impairments/Disorders - 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 Auditory hallucinations. Denies: Hx Eating Disorder, Hx of Violent Episodes Against Others Infectious Disease History: No Infectious Disease History: Denies: Hx Hepatitis, Hx Human Immunodeficiency Virus (HIV), History Other Infectious Disease, Traveled Outside the [place] in Last 30 Days - Family History Known Family History: Positive: Cardiac Disease - sister of [place] @ 47. - Social History Alcohol Use: None Hx Substance Use: No Substance Use Type: Reports: None Hx Tobacco Use: Yes Smoking Status (MU): Former Smoker Have You Smoked in the Last Year: No Review of Systems Negative: Fever Negative: Chest Pain Negative: Shortness Of Breath Positive: Myalgia - back pain All Other Systems Reviewed And Are Negative: Yes Physical Exam Triage Information Reviewed: Yes Vital Signs On Initial Exam: Initial Vitals Temp Pulse Resp BP Pulse Ox 97.1 F 89 18 107/80 97 08/06/18 16:18 08/06/18 16:18 08/06/18 16:18 08/06/18 16:18 08/06/18 16:18 Vital Signs Reviewed: Yes Skin: Positive: Warm, Dry Head/Face: Positive: Normal Head/Face Inspection Eyes: Positive: Normal, Conjunctiva Clear ENT: Positive: Pharynx normal Respiratory/Lung Sounds: Positive: Clear to Auscultation, Breath Sounds Present Cardiovascular: Positive: Normal, RRR Musculoskeletal: Positive: Strength/ROM Intact - back, Other - tenderness left side lower back, neg SLR, sensation grossly intact Neurological: Positive: Reflexes Intact - patella, Normal Gait Psychiatric: Positive: Normal Diagnostics - Vital Signs Vital Signs Temp Pulse Resp BP Pulse Ox 08/06/18 16:18 97.1 F 89 18 107/80 97 - Laboratory Lab Statement: Any lab studies that have been ordered have been reviewed, and results considered in the medical decision making process. - Radiology back Radiology Interpretation Completed By: Radiologist Summary of Radiographic Findings: no fracture Back Pain Course/Dx - Course Course Of Treatment: 62 year old female presents with back pain for the past couple days. She states that it is lower back. She states she was walking when she developed pain. no leg pain. no loss of bowel or bladder. No saddle anesthesias. She denies any fever. She has been taking ibuprofen for the pain with some relief. No numbness or tingling. No weakness. Has history of back pain. States is different location. On exam tenderness left side of her back. Negative straight leg raise. Neurovascular intact. Good strength in lower extremities. X-ray shows no fx. urine no infection. will treat with muscle relaxer. patient understand and agrees with plan. - Diagnoses Differential Diagnosis/HQI/PQRI: Positive: Herniated Disc, Strain, Sprain Provider Diagnoses: Back pain Discharge - Sign-Out/Discharge Documenting (check all that apply): Patient Departure Patient Received Moderate/Deep Sedation with Procedure: No - Discharge Plan Condition: Good Disposition: HOME Prescriptions: Cyclobenzaprine TAB* [Flexeril 10 MG TAB*] 10 mg PO BID PRN #10 tab PRN Reason: Pain Lidocaine PATCH 5%* [Lidoderm 5% Patch*] 1 patch TRANSDERM DAILY #5 patch Patient Education Materials: Back Pain (ED) Referrals: Fortino Pelayo MD [Primary Care Provider] - Additional Instructions: Take muscle relaxers twice a day Apply lidocaine patches to area for up to 12 hours in one 24 hour period Use ibuprofen or Tylenol for pain every 6 hours ice/heat area, move as much as possible Follow up with primary within 5 days Return to ED if develop any new or worsening symptoms - Billing Disposition and Condition Condition: GOOD Disposition: Home
[2018-08-06 17:10] LABS: Urine Appearance Clear; Urine Bilirubin Negative (Negative); Urine Blood Negative (Negative); Urine Color Yellow; Urine Glucose Negative (Negative); Urine Ketones Negative (Negative); Urine Nitrite Negative (Negative); Urine Protein Negative (Negative); Urine Specific Gravity 1.026 (1.010-1.030); Urine Urobilinogen Negative (Negative)
[2018-08-06 17:52] VITALS: BP 143/78
[2018-08-06] MEDS ORDERED: Lidocaine Patch REMOVE* 1 NOTE MISC SCH (21:00)
== END 2018-08-06 17:51 | disposition home or self-care (01) ==
LOC: ED 16:07
DX: M54.5 Low back pain (principal); E78.00 Pure hypercholesterolemia, unspecified; J30.2 Other seasonal allergic rhinitis; R11.10 Vomiting, unspecified; F32.9 Major depressive disorder, single episode, unspecified; R44.0 Auditory hallucinations; Z88.8 Allergy status to other drugs, medicaments and biological substances; Z87.891 Personal history of nicotine dependence
CPT/HCPCS: 72110; 81003; 99282; A9270-GY

== ENCOUNTER 2019-02-14 14:54 | Emergency (ER) | payer OTHER ==
[2019-02-14 15:25] VITALS: BP 113/68
--- NOTE | 2019-02-14 16:13 | UC ---
Psychiatric Complaint HPI - HPI Summary HPI Summary: The patient is a 63-year-old female that has developmental issues. She has been able to live independently. She has a long history of mental health problems including anxiety, insomnia, and psychosis. She had been doing well and 2 months ago elected to get off her medicines. Soon after doing this her symptoms recurred. She was recently restarted on Abilify. She was recently restarted on her Abilify as well as hydroxyzine. For the past 2 weeks she has had difficulty sleeping and she states in her head she feels herself bouncing. This is a common symptom of hers. She also keeps hearing the voice of an ex- boyfriend. This is also what commonly happens when she is off meds. She has no suicidal or homicidal ideation. She denies any pain. She denies any shortness of breath. She denies any fever or chills. She was seen 3 days ago by her mental health provider. She is here with her mom and her mom assures me that she will get seen Saturday by her mental health provider. - History Of Current Complaint Chief Complaint: [facility] Stated Complaint: FATIGUE/ANXIETY Time Seen by Provider: 02/14/19 15:35 Hx Obtained From: Patient, Family/Cold Food Packer - MOM Hx Last Menstrual Period: today Onset/Duration: Sudden Onset, Lasting Weeks Timing: Constant Severity Currently: Moderate Character: Anxious Aggravating Factor(s): Nothing Alleviating Factor(s): Nothing Associated Signs And Symptoms: Hallucinating - auditory, Sleep Disturbance Related History: Positive For: Prior Psychiatric Issues Negative For: Drug Abuse Counseling, Admissions Related To Substance Abuse - Allergies/Home Medications Allergies/Adverse Reactions: Allergies Allergy/AdvReac Type Severity Reaction Status Date / Time venlafaxine [From Effexor] Allergy Dizziness Verified 02/14/19 15:26 ETOH Allergy Unknown GI Upset Uncoded 02/14/19 15:26 Home Medications: Home Medications Ibuprofen 1 tab PO ONCE PRN 02/14/19 [History Confirmed 02/14/19] hydrOXYzine HCl [Hydroxyzine HCl] 1 tab PO QPM PRN 02/14/19 [History Confirmed 02/14/19] PMH/Surg Hx/FS Hx/Imm Hx Previously Healthy: Yes Psychological History: Anxiety, Other - "Pychosis" - Surgical History Surgical History: None - Family History Known Family History: Positive: Cardiac Disease - sister of [place] @ 47. - Social History Alcohol Use: None Substance Use Type: None Smoking Status (MU): Former Smoker Have You Smoked in the Last Year: No - Immunization History Most Recent Tetanus Shot: UNK Review of Systems All Other Systems Reviewed And Are Negative: Yes Constitutional: Positive: Negative Skin: Positive: Negative Eyes: Positive: Negative ENT: Positive: Negative Respiratory: Positive: Negative Cardiovascular: Positive: Negative Gastrointestinal: Positive: Negative Genitourinary: Positive: Negative Motor: Positive: Negative Neurovascular: Positive: Negative Musculoskeletal: Positive: Negative Neurological: Positive: Negative Psychological: Positive: Negative Physical Exam Triage Information Reviewed: Yes Appearance: Well-Appearing, No Pain Distress, Well-Nourished Vital Signs: Initial Vital Signs Temp 99.2 F 02/14/19 15:13 Pulse 70 02/14/19 15:13 Resp 18 02/14/19 15:13 BP 113/68 02/14/19 15:13 Pulse Ox 97 02/14/19 15:13 Vital Signs Reviewed: Yes Eyes: Positive: Conjunctiva Clear ENT: Positive: Hearing grossly normal. Negative: Nasal congestion, Nasal drainage Neck: Positive: Supple, Nontender, No Lymphadenopathy Respiratory: Positive: Lungs clear, Normal breath sounds, No respiratory distress Cardiovascular: Positive: RRR, No Murmur Musculoskeletal: Positive: ROM Intact, No Edema Neurological: Positive: Alert Psychological Exam: Other - flat affect Skin Exam: Normal Psych Complaint Course/Dx - Differential Dx/Diagnosis Provider Diagnosis: Anxiety, Insomnia Discharge ED - Sign-Out/Discharge Documenting (check all that apply): Patient Departure All imaging exams completed and their final reports reviewed: No Studies - Discharge Plan Condition: Stable Disposition: HOME Prescriptions: traZODone TAB* [Desyrel TAB*] 100 mg PO BEDTIME #5 tab Patient Education Materials: Anxiety (ED) Referrals: Fortino Pelayo MD [Primary Care Provider] - Additional Instructions: Hold of on your bedtime doses of hydroxyzine start trazadone call you mental health provider SATURDAY to ER for worsening symptoms - Billing Disposition and Condition Condition: STABLE Disposition: Home
== END 2019-02-14 16:10 | disposition home or self-care (01) ==
LOC: UCEAST 14:54
DX: F41.9 Anxiety disorder, unspecified (principal); G47.00 Insomnia, unspecified; R53.83 Other fatigue; F29 Unspecified psychosis not due to a substance or known physiological condition; Z88.8 Allergy status to other drugs, medicaments and biological substances; Z91.09 Other allergy status, other than to drugs and biological substances; Z87.891 Personal history of nicotine dependence; Z79.899 Other long term (current) drug therapy
CPT/HCPCS: 99212; G0463

== ENCOUNTER 2019-08-10 10:29 | Emergency (ER) | payer MEDICARE, MEDICAID, OTHER ==
--- OUTSIDE RECORDS SUMMARY | 2019-08-10 10:36 | XMS REPORT | Continuity of Care Document ---
:1955 External Reference #:[id number] Author Name Katerine Maya, PILAR Address [address] [place] [address] Care Team Providers Name Role Phone Fortino Pelayo - Family Medicine Care Team Information Fish Cutter [phone] DR. Jun - Mental Health Care Team Information Fish Cutter [phone] [employer] - Oxygen Equipment & Supplies Care Team Information Fish Cutter Problems Active Problems Provider Date Allergic rhinitis Fortino Pelayo M.D. Onset: 09/25/2006 Gastroesophageal reflux disease Fortino Pelayo M.D. Onset: 05/01/2010 Irritable bowel syndrome Fortino Pelayo M.D. Onset: 05/01/2010 Constipation Fortino Pelayo M.D. Onset: 05/01/2010 Variants Of Migraine,NEC,Without Mention Fortino Pelayo M.D. Onset: 2011 Intractable Migraine Hyperlipidemia Fortino Pelayo M.D. Onset: 07/23/2011 Esophageal dysphagia Fortino Pelayo M.D. Onset: 11/26/2011 Low back pain Fortino Pelayo M.D. Onset: 03/31/2012 Anxiety state Fortino Pelayo M.D. Onset: 04/07/2012 Extrapyramidal disease Fortino Pelayo M.D. Onset: 07/08/2012 Intellectual functioning disability Diamante Galan M.D. Onset: 02/08/2015 Moderate recurrent major depression Diamante Galan M.D. Onset: 02/08/2015 Allergic rhinitis due to pollen Fortino Pelayo M.D. Onset: 05/10/2015 Constipation - functional Fortino Pelayo M.D. Onset: 05/10/2015 Impetigo Fortino Pelayo M.D. Onset: 05/10/2015 Mild mental handicap Fortino Pelayo M.D. Onset: 05/10/2015 Delusional disorders Fortino Pelayo M.D. Onset: 05/10/2015 Nausea and vomiting Fortino Pelayo M.D. Onset: 2015 Slow transit constipation Fortino Pelayo M.D. Onset: 2015 Headache Fortino Pelayo M.D. Onset: 2015 Hemorrhoids without complication Fortino Pelayo M.D. Onset: 2015 Dysthymic disorder Fortino Pelayo M.D. Onset: 06/04/2016 Pneumonia due to other specified bacteria Fortino Pelayo M.D. Onset: 2017 Mixed hyperlipidemia Fortino Pelayo M.D. Onset: 02/04/2018 Social History Type Date Description Comments Sex Unknown Tobacco Use Start: Unknown Nonsmoker Smoking Status Reviewed: 07/06/19 Nonsmoker ETOH Use Rare Tobacco Use Start: Unknown Patient has never smoked Allergies, Adverse Reactions, Alerts Active Allergies Reaction Severity Comments Date Michelle-d unsure of reaction 10/04/2006 Effexor unsure of reaction 03/26/2012 Medications Active Medications SIG Qnty Indications Ordering Date Provider Tom otto as directed, 2 6tabs R05 Katerine Prajapati 07/06/2019 250mg tabs day one, one Maya, PRODUCT MANAGEMENT ANALYST Tablets tab day 2-5 Tesoneyda Cobos take 2 tablets every 30caps R05 Katerine Prajapati 07/06/2019 100mg 8 hours as needed Maya, PRODUCT MANAGEMENT ANALYST Capsules for cough Nebulizer nebulize albuterol 4 1units J30.89 Rosemarie L. 11/08/2018 Kit/Tubing/Mouthpiec times daily while Yajaira Du e coughing. dx: Brian j30.89, r05. seen on 11/08/18 Albuterol Sulfate use 1 vial via 75ml J30.89 Rosemarie L. 11/08/2018 nebulizer every 4 Yajaria Du (2.5mg/3ML) 0.083% hours as needed for Nebulizer shortness of breath /wheezing Meclizine HCL 3po every night at 90tabs R42 Tiffani Holman, 03/19/2018 12.5mg bedtime for COMMERCIAL ACCOUNT EXECUTIVE Tablets dizziness Colace 1 by mouth twice a 30caps K59.09 Tiffani Holman, 09/23/2017 100mg Capsules day with food as COMMERCIAL ACCOUNT EXECUTIVE needed for constipation Fibercon 1 twice a day with 60tabs K59.09 Tiffani Holman, 09/23/2017 625mg meals COMMERCIAL ACCOUNT EXECUTIVE Tablets Cetirizine HCL 1 by mouth every day 30tabs R05 Katerine Victorina 05/24/2017 10mg Maya, PRODUCT MANAGEMENT ANALYST Tablets Ondansetron dissolve 1 tablet in 30tabs R11.10 Jennifer C. 02/16/2014 4mg mouth 4 times daily Alfonso, PRODUCT MANAGEMENT ANALYST Tablets Dispers as needed for nausea R11.2 Abilify 5mg Tablets 1 by mouth every day Unknown 00/ Medications Administered in Office Medication SIG Qnty Indications Ordering Provider Date TB Intradermal Test LAURA ReaganP 09/28/2015 Injection Immunizations CPT Code Status Date Vaccine Lot # [id number] Given 07/23/2011 Tdap Tetanus, W Pertussis [id number] Given 02/14/2007 DO Not Use Split Influenza Virus Vaccine [id number] Given 02/14/2006 DO Not Use Split Influenza Virus Vaccine Vital Signs Date Vital Result Comment 07/06/2019 11:25am BP Systolic 114 mmHg BP Diastolic 78 mmHg Heart Rate 72 /min Body Temperature 98.4 F Respiratory Rate 16 /min 06/22/2019 8:45am BP Systolic 114 mmHg BP Diastolic 78 mmHg Heart Rate 62 /min Body Temperature 98.1 F O2 % BldC Oximetry 99 % room air Height 61.75 inches 5'1.75" Weight 160.00 lb BMI (Body Mass Index) 29.5 kg/m2 Results Description No Information Available Procedures Date Code Description Status 06/22/2019 44482 Pulse Oximetry Completed 06/22/2019 94300 Remove Impact Cerumen Irrigati Completed 07/01/2018 [id number] Mammogram Completed 06/15/2016 [id number] Mammogram Completed 03/17/2012 [id number] Mammogram Completed 02/19/2011 [id number] Mammogram Completed 02/13/2010 [id number] Mammogram Completed 11/22/2009 [id number] Colonoscopy Completed 02/07/2009 [id number] Mammogram Completed 01/19/2008 [id number] Mammogram Completed Medical Devices Description No Information Available Encounters Type Date Location Provider Dx Diagnosis Office Visit 07/06/2019 Main Office Katerine Maya, J30.89 Other allergic 11:00a PRODUCT MANAGEMENT ANALYST rhinitis R05 Cough Office Visit 06/22/2019 8:30a Main Office Katerine Maya NP R05 Cough J30.89 Other allergic rhinitis H61.23 Impacted cerumen, bilateral Office Visit 03/10/2019 11:00a Main Office Jennifer Liz H69.93 Unspecified PILAR Hamilton Eustachian tube disorder, bilateral Assessments Date Code Description Provider 07/06/2019 J30.89 Other allergic rhinitis Katerine Maya, PILAR 07/06/2019 R05 Cough Katerine Maya, PILAR 06/22/2019 R05 Cough Katerine Maya, PILAR 06/22/2019 J30.89 Other allergic rhinitis Katerine Maya, PILAR 06/22/2019 H61.23 Impacted cerumen, bilateral Katerine Maya, PILAR 03/10/2019 H69.93 Unspecified Eustachian tube disorder, Jennifer Hamilton, PILAR bilateral Plan of Treatment 07/06/2019 - Katerine Maya, PILARJ30.89 Other allergic rhinitisComments: continue nebulizer try to do it 2-3 times a dayR05 CoughNew Medication: Azithromycin 250 mg - z clarita as directed, 2 tabs day one, one tab day 2- 5Tessalon Perles 100 mg - take 2 tablets every 8 hours as needed for coughNew Xrays:Chest 2 Views, Ordered: 07/06/19Comments:Coughing is rough on your system. Not only do they make you really tired but they dehydrate you really quickly! Supportive care: 1) Make sure you are resting. This is the only way the body can take theenergy it needs to heal itself. 2) Fluids, fluids, fluids! - Drink a lot of water or other caffeinefree, clear liquids - Use a humidifier in your room at night - If tolerated, use a saline nasal spray to help clear out your sinuses 3) Cough and blow it out, the more you can get out of your system the better4) Make sure you are washing your hands well so you are not spreading your illness to the community. 5) You can take Acetaminophen or Ibuprofen as directed for pain Call or return if worseningsymptoms resume Cetirizine Add tessalon pearls and azithromycin to try to treat chronic cough patient instructed to call back if condition fails to improve or worsens. CXR end of this week beginning of next if condition fails to show any improvement or if worsening condition.AllComments:Medication Management Patient Understands medications he 's taking? Yes No Are there Barriers to Adherence? Yes No Has the patient been asked about herbal supplements and therapies, andOTC meds? Yes No Care Plan1. Patient has been queried about patient's goals/preferences and functional/lifestyle goals at relevant visits. If relevant, describe: na2. Treatment goals as explained to the patient: above3. Are there barriers to meeting treatment goals? Yes No If Yes, please describe: disease process, comorbid conditions, polypharmacy 4. Self-Management goals as described to the patient: Yes NoAs always, we strongly encourage a healthy diet and making physical activity a part of your every day life. If you have questions about how or where to start , please contact the office. Functional Status Description No Information Available Mental Status Description No Information Available Referrals Description No Information Available
--- OUTSIDE RECORDS SUMMARY | 2019-08-10 10:36 | XMS REPORT | Continuity of Care Document ---
:1955 External Reference #:[id number] Author Name Katerine Maya, PILAR Address [address] [place] [address] Care Team Providers Name Role Phone Fortino Pelayo - Family Medicine Care Team Information Signing Teacher [phone] DR. Jun - Mental Health Care Team Information Signing Teacher [phone] [employer] - Oxygen Equipment & Supplies Care Team Information Signing Teacher Problems Active Problems Provider Date Allergic rhinitis Fortino Pelayo M.D. Onset: 09/25/2006 Gastroesophageal reflux disease Fortino Pelayo M.D. Onset: 05/01/2010 Irritable bowel syndrome Fortino Pelayo M.D. Onset: 05/01/2010 Constipation Fortino Pelayo M.D. Onset: 05/01/2010 Variants Of Migraine,NEC,Without Mention Fortino Pelayo M.D. Onset: 2011 Intractable Migraine Hyperlipidemia Fotrino Pelayo M.D. Onset: 07/23/2011 Esophageal dysphagia Fortino [...] Use Start: Unknown Nonsmoker Smoking Status Reviewed: 06/22/19 Nonsmoker ETOH Use Rare Tobacco Use Start: Unknown Patient has never smoked Allergies, Adverse Reactions, Alerts Active Allergies Reaction Severity Comments Date Michelle-d unsure of reaction 10/04/2006 Effexor unsure of reaction 03/26/2012 Medications Active Medications SIG Qnty Indications Ordering Date Provider Nebulizer nebulize albuterol 4 1units J30.89 Rosemarie Franklin 11/08/2018 Kit/Tubing/Mouthpie times daily while Yajaira Du ce coughing. dx: Kit j30.89, r05. seen on 11/08/18 Albuterol Sulfate use 1 vial via 75ml J30.89 Rosemarie LGuicho 11/08/2018 nebulizer every 4 Yajaira Du (2.5mg/3ML) 0.083% hours as needed for Nebulizer shortness of breath /wheezing Meclizine HCL 3po every night at 90tabs R42 Tiffani Holman, 03/19/2018 bedtime for POLICY SERVICE COORDINATOR 12.5mg Tablets dizziness Colace 1 by mouth twice a 30caps K59.09 Tiffani Holman, 09/23/2017 100mg day with food as POLICY SERVICE COORDINATOR Capsules needed for constipation Fibercon 1 twice a day with 60tabs K59.09 Tiffani Sherwoodrer, 09/23/2017 625mg meals POLICY SERVICE COORDINATOR Tablets Cetirizine HCL 1 by mouth every day 30tabs R05 Katerine Prajapati 05/24/2017 10mg PILAR Maya Tablets Ondansetron dissolve 1 tablet in 30tabs R11.10 Jennifer Shalonda 02/16/2014 4mg mouth 4 times daily PILAR Hamilton Tablets Dispers as needed for nausea R11.2 Abilify 5mg Tablets 1 by mouth every day Unknown 00 Medications Administered in Office Medication SIG Qnty Indications Ordering Provider Date TB Intradermal Test Tiffani LAURA HolmanP 09/28/2015 Injection Immunizations CPT Code Status Date Vaccine Lot # [id number] Given 07/23/2011 Tdap Tetanus, W Pertussis [id number] Given 02/14/2007 DO Not Use Split Influenza Virus Vaccine 13290 Given 02/14/2006 DO Not Use Split Influenza Virus Vaccine Vital Signs Date Vital Result Comment 06/22/2019 8:45am BP Systolic 114 mmHg BP Diastolic 78 mmHg Heart Rate 62 /min Body Temperature 98.1 F O2 % BldC Oximetry 99 % room air Height 61.75 inches 5'1.75" Weight 160.00 lb BMI (Body Mass Index) 29.5 kg/m2 03/10/2019 11:10am BP Systolic 118 mmHg BP Diastolic 78 mmHg Heart Rate 82 /min Body Temperature 98.6 F Respiratory Rate 16 /min Height 61.75 inches 5'1.75" Weight 154.00 lb BMI (Body Mass Index) 28.4 kg/m2 Results Description No Information Available Procedures Date Code Description Status 06/22/2019 58345 Remove Impact Cerumen Irrigati Completed 07/01/2018 [id number] Mammogram Completed 06/15/2016 [id number] Mammogram Completed 03/17/2012 [id number] Mammogram Completed 02/19/2011 [id number] Mammogram Completed 02/13/2010 [id number] Mammogram Completed 11/22/2009 [id number] Colonoscopy Completed 02/07/2009 [id number] Mammogram Completed 01/19/2008 [id number] Mammogram Completed Medical Devices Description No Information Available Encounters Type Date Location Provider Dx Diagnosis Office Visit 06/22/2019 8:30a Main Office Katerine Maya NP R05 Cough J30.89 Other allergic rhinitis H61.23 Impacted cerumen, bilateral Office Visit 03/10/2019 11:00a Main Office Jennifer Liz H69.93 Unspecified PILAR Hamilton Eustachian tube disorder, bilateral Assessments Date Code Description Provider 06/22/2019 R05 Cough Katerine Maya NP 06/22/2019 J30.89 Other allergic rhinitis Katerine Maya NP 06/22/2019 H61.23 Impacted cerumen, bilateral Katerine Maya NP 03/10/2019 H69.93 Unspecified Eustachian tube disorder, Jennifer Hamilton NP bilateral Plan of Treatment 06/22/2019 - Katerine Maya, NPR05 CoughComments:Coughing is rough on your system. Not only [...] pain Call or return if worseningsymptoms resume VrzpewmnguO38.89 Other allergic rhinitisComments:continue xahnmnxkwY67.23 Impacted cerumen, bilateralComments:Warm water irrigation successful. Patient tolerated well. Discussed not to use Q tips, rather use a wash cloth around outside of ears. Avoid excessive use of headphones that enter ear canal, if using for long time use over ear type. Debrox as needed for excessive ear wax.AllComments:Medication Management Patient Understands medications he 's taking? Yes No Are there Barriers to Adherence? Yes No Has the patient been asked about herbal supplements and therapies, andOTC meds? Yes No Care Plan1. Patient has been queried about patient's goals/ preferences and functional/lifestyle goals at relevant visits. If [...] have questions about how or where to start, please contact the office. Functional Status Description No Information Available Mental Status Description No Information Available Referrals Description No Information Available
--- OUTSIDE RECORDS SUMMARY | 2019-08-10 10:36 | XMS REPORT ---
:1955 Author Organization [facility] Care Team Providers Name Role Phone Namita Hernandez Primary Care Physician Unavailable Allergies, Adverse Reactions, Alerts Allergy Code CodeSystem Reaction Severity Criticality Status Start Substance Date Moderate Medications Medication Medication Medication Start Stop Route Dose Status Fill Code CodeSystem Date Date Instructions aripiprazole 015662 RxNorm 2019- oral 2 mg completed for 30 5-23 08-21 tablet day(s) meclizine 428673 RxNorm oral 12.5 mg active for 30 tablet day(s) cyclobenzaprine 089985 RxNorm oral 10 mg active for 5 tablet day(s) aripiprazole 727149 RxNorm 2018-04- oral 5 mg 1 active Take 1 tablet 0-21 12-20 tablet by mouth at at bedtime for bedtime 30 day(s) trazodone 167483 RxNorm 2018-04- oral 150 mg active for 30 1-05 11-30 tablet day(s) hydroxyzine HCl 385079 RxNorm 2018-04- oral 50 mg 1 completed Take 1 tablet 0-21 11-20 tablet at bedtime at for 30 day(s) bedtime aripiprazole 201420 RxNorm 2018- oral 5 mg 1 completed Take 1 tablet 4-23 05-23 tablet every night every for 30 day(s) night Relevant diagnostic tests/laboratory data Narrative No Information Procedures Procedure Code CodeSystem Target Date of Status Service Device Device Device Name Site Procedure Delivery Code Name UID Location SNOMED-CT () 2018-08-12 complete Mental d Health- [address], [id number] Office or [id number] SNOMED-CT () 2018-08-21 complete Mental other 8 d Health- outpatient [facility] visit for [address], of an ID, established [id number] patient, [id number] which requires at least 2 of these 3 soto components: A detailed history; A detailed examination; Medical decision making of moderate complexity. Counseling and/o Office or [id number] SNOMED-CT () 2018-09-04 complete Mental other 7 d Health- outpatient [facility] visit [facility] [address] [facility], [facility] [id number] patient, [id number] which requires at least 2 of these 3 soto components: An expanded problem focused history; An expanded problem focused examination; Medical decision making of low Office or [id number] SNOMED-CT () 2018-09-11 complete Mental other 6 d Health- outpatient [facility] [address] [facility], established [id number] patient, [id number] which requires at least 2 of these 3 soto components: A problem focused history; A problem focused examination; Straightforw joann medical decision making. Counselin Office or [id number] SNOMED-CT () 2018-10-09 complete Mental other 7 d Health- outpatient [facility] visit for [address] [facility], established [id number] patient, [id number] which requires at least 2 of these 3 soto components: An expanded problem focused history; An expanded problem focused examination; Medical decision making of low Office or [id number] SNOMED-CT () 2019-01-08 complete Mental other 7 d Health- outpatient [facility] visit for [address] [facility], established [id number] patient, [phone] which requires at least 2 of these 3 soto components: An expanded problem focused history; An expanded problem focused examination; Medical decision making of low Office or [id number] SNOMED-CT () 2019-02-09 complete Mental other 7 d Health- outpatient [facility] visit for [address] [facility], established [id number] patient, [id number] which requires at least 2 of these 3 soto components: An expanded problem focused history; An expanded problem focused examination; Medical decision making of low SNOMED-CT () 2019-02-12 complete Mental d Health[address], [id number] Psychotherap [id number] SNOMED-CT () 2019-02-26 complete Mental y, 45 04 d Health- minutes with [facility] patient [address], [id number] [phone] Office or [id number] SNOMED-CT () 2019-02-19 complete Mental other 7 d Health- outpatient [place] visit for [address], established [id number] patient, [phone] which requires at least 2 of these 3 soto components: An expanded problem focused history; An expanded problem focused examination; Medical decision making of low SNOMED-CT () 2019-04-17 complete Mental d Health[address], [id number] Office or [id number] SNOMED-CT () 2019-05-07 complete Mental other 6 d Health- outpatient [facility] visit for [address], [facility], established [id number] patient, [phone] which requires at least 2 of these 3 soto components: A problem focused history; A problem focused examination; Straightforw joann medical decision making. Counselmaritza SNOMED-CT () 2019-05-07 complete Mental d Health- [address], [id number] SNOMED-CT () 2019-05-19 complete Mental d [address], [id number] Psychotherap [id number] SNOMED-CT () 2019-05-28 complete Mental y, 45 04 d Health- minutes with [facility] patient [address], [id number] Psychotherap [id number] SNOMED-CT () 2019-06-11 complete Mental y, 45 04 d Health- minutes with [facility] patient [address], [phone] [phone] Encounters/Encounter Diagnoses Encounter Name Encounter Diagnosis Diagnosis Diagnosis Date of Service Code Code Name CodeSystem Diagnosis Delivery Location Established 54404 SNOMED-CT 2019-06-22 Behavioral patient [facility] , , , Vital Signs No Information Social History Element Description Description Start End Code CodeSystem AdditionalInfo Date Date SexAssignedAtBirth Female 0 F AdministrativeGender 7- Hospital Discharge Instructions Reason For Referral Medical Equipment FDA Assessments
--- NOTE | 2019-08-10 11:27 | UC ---
Respiratory Complaint HPI - HPI Summary HPI Summary: 63 y/o female cognitively impaired presents to the urgent care accompany by [employer] Maid from [facility] Mrs Mata c/o a persistent cough since . Pt reports she has Hx of allergies and her PCP Dr Pelayo has told her to use the albuterol nebulizer treatment and cough medication. However for the past week she has noticed cough is worse, specially laying down and at night. Pt also states mild sore throat and a lot pf PND w/ mild sinus SOTELO. Care take states Pt lives alone and she check on her 2/week. Pt has been eating well, drinking fluids and active. She denies chills, fever, SOB, chest pain, dizziness , abdominal pain, N/V/d, sick contacts. But she is concerned about COVID 19 since cough is worsening. [employer] Loun[employer] Maid states her PCP ordered a chest X-ray, but they haven't done it yet. 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 Negative: Fever, Chills, Wheezing, Hoarseness - Risk Factors Pulmonary Embolism Risk Factors: Negative Cardiac Risk Factors: Negative Pseudomonas Risk Factors: Negative Tuberculosis Risk Factors: Negative - Allergies/Home Medications Allergies/Adverse Reactions: Allergies Allergy/AdvReac Type Severity Reaction Status Date / Time venlafaxine [From Effexor] Allergy Dizziness Verified 08/10/19 10:41 ETOH Allergy Unknown GI Upset Uncoded 08/10/19 10:41 Home Medications: Home Medications ARIPiprazole TAB* [Abilify 2 MG TAB*] 2 mg PO DAILY 04/07/18 [History Confirmed 08/10/19] Ondansetron ODT TAB* [Zofran 4 MG Odt TAB*] 4 mg PO Q6H PRN 06/15/18 [History Confirmed 08/10/19] Ibuprofen 1 tab PO ONCE PRN 02/14/19 [History Confirmed 08/10/19] traZODone TAB* [Desyrel TAB*] 100 mg PO BEDTIME #5 tab 02/14/19 [Rx Confirmed ] Benzonatate CAP* [Tessalon 100 MG CAP*] 100 mg PO TID PRN #21 cap 08/10/19 [Rx] DOXYcycline CAP(*) [DOXYcycline 100MG CAP(*)] 100 mg PO BID #20 cap 08/10/19 [Rx ] Fexofenadine/Pseudoephedrine [Michelle-D 24 Hour Tablet] 1 each PO DAILY #15 tab.er.24h 08/10/19 [Rx] Meclizine TAB* [Antivert 12.5 TAB*] 12.5 mg PO TID PRN 08/10/19 [History Confirmed 08/10/19] PMH/Surg Hx/FS Hx/Imm Hx Previously Healthy: Yes Other Neurological History: cognitive impaired, Psychological History: Bipolar Disorder - Surgical History Surgical History: None - Family History Known Family History: Positive: Cardiac Disease - sister of [place] @ 47. - Social History Occupation: Disabled Lives: Alone - with help from [employer] Alcohol Use: None Substance Use Type: None Smoking Status (MU): Former Smoker Have You Smoked in the Last Year: No - Immunization History Most Recent Tetanus Shot: UNK Review of Systems All Other Systems Reviewed And Are Negative: Yes Constitutional: Positive: Negative Skin: Positive: Negative Eyes: Positive: Negative ENT: Positive: Sore Throat, Nasal Discharge - clear, Sinus Congestion Respiratory: Positive: Cough - perisitant cough for the past 3 month Cardiovascular: Positive: Negative Gastrointestinal: Positive: Negative Genitourinary: Positive: Negative Motor: Positive: Negative Neurovascular: Positive: Negative Musculoskeletal: Positive: Negative Neurological/Mental Status: Positive: Negative Psychological: Positive: Negative Is Patient Immunocompromised?: No Physical Exam - Summary Physical Exam Summary: Vital Signs Reviewed: Yes General: well developed, well nourished female sitting in the examining table w/ o any apparent distress Eyes: Positive: Conjunctiva Clear - PERRLA, EOMI, fundi grossly normal ENT: Positive: Normal ENT inspection, Hearing grossly normal, Pharynx normal, Nasal congestion - edematous and erythematous nasal mucosa, Nasal drainage - yellowish drainage, TMs normal. Negative: Tonsillar swelling, Tonsillar exudate Neck: Positive: Supple, Nontender, No Lymphadenopathy Respiratory: no orthopnea or dyspnea. Able to speak in full sentences, no retractions or accessory muscle use, no tripod position, stridor, or head bobbing. Positive breath sounds bilaterally. mild scattered rhonchi on b/L lungs, no wheezing, no crackles or rales. Cardiovascular: Positive: RRR, No Murmur, Pulses Normal, Brisk Capillary Refill Abdomen Description: Positive: Nontender, No Organomegaly, Soft. Negative: CVA Tenderness (R), CVA Tenderness (L) Bowel Sounds: Positive: Present Musculoskeletal Exam: Normal Musculoskeletal: Positive: Strength Intact, ROM Intact, No Edema Neurological Exam: Normal Psychological Exam: Normal Skin Exam: Normal Triage Information Reviewed: Yes Respiratory Course/Dx - Course Course Of Treatment: 63 y/o female cognitively impaired presents to the urgent care accompany by [employer] Maid from [facility] Mrs Mata c/o a persistent cough since . Pt reports she has Hx of allergies and her PCP Dr Pelayo has told her to use the albuterol nebulizer treatment and cough medication. However for the past week she has noticed cough is worse, specially laying down and at night. Pt also states mild sore throat and a lot pf PND w/ mild sinus SOTELO. Care take states Pt lives alone and she check on her 2/week. Pt has been eating well, drinking fluids and active. She denies chills, fever, SOB, chest pain, dizziness , abdominal pain, N/V/d, sick contacts. But she is concerned about COVID 19 since cough is worsening. [employer] Loun[employer] Maid states her PCP ordered a chest X-ray, but they haven't done it yet. Hx obtained. Pt is hemodynamically stable, A&OX3, VS : WNL. Pt w/ scattered mild rhonchi on posterior RT lung, no wheezing, no crackles , good air entry B/L on examination. O2Sat:98%. Rapid strep: negative , Rapid influenza A&B: negative. COVID testing ordered since cough is worsening and Pt and caregiver concerned about COVID 19. Chest X-ray ordered: IMPRESSION: Trace right basilar airspace opacification (atelectasis versus infiltrate) as per radiologist . Pt's symptoms discussed w/ DR Cormier and she thinks it is beginning of bronchopneumonia. and recommends antibiotics and Michelle D and close observation on Pt's symptoms. Patient prescribed Doxycycline PO, Michelle D and Tessalon Tabs to alleviate symptoms as directed below. 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 Take medications as recommended. Pt advised COVID test results will have a turn over of 3-6 days. [employer] Loun[employer] Maid and Pt advised to quarantine while waiting for the results and Health department will contact her to notify her of any abnormality. Pt advised to take Tylenol if she develops any fever, Increase hydration and boost immune system by eating well, taking Vitamin C and avoiding strenuous exercise. D/C instructions explained. Pt understood and agreed w/ plan of care. Pt left clinic ambulating and hemodynamically stable, A &Ox3. - Differential Dx/Diagnosis Differential Diagnosis/HQI/PQRI: Asthma, Bronchitis, Exacerbation Of COPD, Influenza, Laryngitis, Lower Resp Infection, Sinusitis Provider Diagnosis: Suspected COVID-19 virus infection, Bronchopneumonia Discharge ED - Sign-Out/Discharge Documenting (check all that apply): Patient Departure - D/C home All imaging exams completed and their final reports reviewed: Yes - Discharge Plan Condition: Stable Disposition: HOME Prescriptions: Benzonatate CAP* [Tessalon 100 MG CAP*] 100 mg PO TID PRN #21 cap PRN Reason: Cough DOXYcycline CAP(*) [DOXYcycline 100MG CAP(*)] 100 mg PO BID #20 cap Fexofenadine/Pseudoephedrine [Michelle-D 24 Hour Tablet] 1 each PO DAILY #15 tab.er.24h Patient Education Materials: Community Acquired Pneumonia (ED) Forms: COVID-19 Tested & Isolation Referrals: Fortino Pelayo MD [Primary Care Provider] - 3 Days Additional Instructions: 1-Please take full course of antibiotics to avoid resistance. Take yogurts with probiotics or culturelle to protect your GI system 2-Take Michelle D as directed to alleviate your group practice pediatrician. Use saline drops on each nostril 2/day to clear sinuses 3- Take Tessalon tabs PO as direted to alleviate cough. Increase fluid intake, rest and eat well. avoid strenuous exercised. 4- If symptoms do not improve or worsen or your develop SOB with fever and severe cough please go immediately to the ER further evaluation and treatment. Otherwise f/u with your PCP in 3 days to check your symptoms are improving 5- Rapid influenza A &B: negative. Rapid strep: negative 6- Oropharyngeal swabs have been sent to the lab to r/o COVID 19, you will be notified of any abnormality as soon as we get the results. 2-Please Take Tylenol PO q6-8hrs prn as instructed after meals to alleviate fever, or myalgias. Take Vitamin C to boost your immune system. Increase fluid intake, eat well, rest and avoid strenuous exercise. 3- Please isolate at home until you get the results. The Health department will contact you and will ask for temperature, follow their recommendations. Their phone # if you have any questions Talking points for In-home Isolation What is In-Home Isolation? You are suspected to have a disease which can be easily spread to others. To minimize potential spread of disease, you must stay from others at a suitable location approved by the health department. Usually this can be accomplished in your home by placing you in your own bedroom with use of your own bathroom. If needed, the health department will arrange for alternate housing. You are not to leave the approved isolation location for any purpose until released by [facility]. You cannot go to work, school, public places, or social gatherings. Expect a phone call from a health department nurse to discuss your isolation location. You then will receive a written isolation order from the health department explaining the limitations on your movement and for what time period. What about household members? Household members are to stay away from you inside your home and will not be allowed to use your bedroom or bathroom. What about visitors? Visitors or non-household members are not allowed to enter your home for the duration of the isolation period. What should I expect while isolated? Health Department nurses will monitor your condition daily by phone to assess your health status. You must cooperate with this daily activity. How will I get food and my prescription medications? Basic essential daily living items like food, water, and prescribed medications will be supplied to you throughout the duration of isolation should you need such items and are without support systems who can provide them. What happens if I develop new symptoms and need medical treatment? If you develop new symptoms of illness, you must call the health department immediately at [phone] to report. A health department nurse will determine if you should leave the premises for the sole purpose of seeking medical attention and will instruct you. - Billing Disposition and Condition Condition: STABLE Disposition: Home
[2019-08-10 12:03] VITALS: BP 116/60
[2019-08-10 12:19] LABS: Influenza A Molecular Negative (Negative); Influenza B Molecular Negative (Negative)
== END 2019-08-10 13:20 | disposition home or self-care (01) ==
LOC: UCEAST 10:29
DX: J18.0 Bronchopneumonia, unspecified organism (principal); Z20.828 Contact with and (suspected) exposure to other viral communicable diseases; G31.84 Mild cognitive impairment of uncertain or unknown etiology; F31.9 Bipolar disorder, unspecified; Z79.899 Other long term (current) drug therapy; Z88.8 Allergy status to other drugs, medicaments and biological substances; Z91.09 Other allergy status, other than to drugs and biological substances; Z87.891 Personal history of nicotine dependence
CPT/HCPCS: 71046; 87635; 87651; 99212; G0463; U0003